=== PATIENT | male | born 1990 | race Caucasian/White ===

== ENCOUNTER → 2016-12-24 | Outpatient (CLI) | payer OTHER | END | disposition home or self-care (01) | LOC: MW.CHRC 09:55 | PROVIDERS: ATTEND Family Medicine | DX: R23.2 Flushing (principal) | CPT/HCPCS: 36415; 84439; 84443; 93005 ==

== ENCOUNTER 2017-05-21 16:12 | Emergency (ER) | payer OTHER ==
[2017-05-21 16:50] VITALS: BP 137/86
--- NOTE | 2017-05-21 17:03 | EDM.PDOC ---
ED HPI GENERAL MEDICAL PROBLEM - General Chief Complaint: Lower Extremity Injury/Pain Stated Complaint: PT HURT LT KNEE Time Seen by Provider: 05/21/17 16:50 Source of Information: Reports: Patient History Limitations: Reports: No Limitations - History of Present Illness INITIAL COMMENTS - FREE TEXT/NARRATIVE: HISTORY AND PHYSICAL: History of present illness: [Patient comes to the emergency room complaining of left knee pain. 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 He landed on his left side with his left knee flexed. Complains of pain over the medial aspect of his left knee. Has been able to bear weight but is limping somewhat. No previous history of trauma or surgeries to his lower extremities. Denies numbness and tingling. He has no other complaints or concerns.] Review of systems: As per history of present illness and below otherwise all systems reviewed and negative. Past medical history: As per history of present illness and as reviewed below otherwise noncontributory. Surgical history: As per history of present illness and as reviewed below otherwise noncontributory. Social history: No reported history of drug or alcohol abuse. Family history: As per history of present illness and as reviewed below otherwise noncontributory. Physical exam: HEENT: Atraumatic, normocephalic. Extremities: Mild swelling is appreciated over the medial aspect of his left knee. And is otherwise atraumatic. No crepitus. No patellar tenderness with palpation. No laxity or joint instability is appreciated. Negative for cords or calf pain. Neurovascular unremarkable. Dorsalis pedis pulses are 2+ and equal bilaterally. Mild limping with ambulation. Neuro: Awake, alert, oriented. Cranial nerves II through XII unremarkable. Cerebellum unremarkable. Motor and sensory unremarkable throughout. Exam nonfocal. Impression: [L knee pain] Plan: [Discussed with patient that he likely experienced a knee strain. Apply ice and a compression brace if he desires, Tylenol and ibuprofen as needed for discomfort. He is offered crutches which he declines today. Referral given to ortho if he desires. He is in agreement with today's plan. All questions are answered and concerns are addressed.] Definitive disposition and diagnosis as appropriate pending reevaluation and review of above. Left Knee Pain Score (Numeric/FACES): 5 - Related Data Allergies Allergy/AdvReac Type Severity Reaction Status Date / Time No Known Allergies Allergy Verified 08/25/15 08:40 Home Meds: Home Meds Fexofenadine [Fely] 1 tab PO DAILY PRN 12/11/15 [History] Fish Oil/[place]-3 Fatty Acids [Fish Oil 1,000 MG] 1 tab PO DAILY 12/11/15 [ History] Multivitamin [Multivitamins] 1 tab PO DAILY 12/11/15 [History] Past Medical History - Past Health History Medical/Surgical History: Denies Medical/Surgical History HEENT History: Reports: None Cardiovascular History: Reports: None Respiratory History: Reports: Other (See Below) Other Respiratory History: possible sleep apnea, has scheduled sleep study in December 19, 2015 Gastrointestinal History: Genitourinary History: Reports: None Musculoskeletal History: Reports: None Neurological History: Reports: None Psychiatric History: Reports: None Endocrine/Metabolic History: Reports: Obesity/BMI 30+ Hematologic History: Reports: None Immunologic History: Reports: None Oncologic (Cancer) History: Reports: None Dermatologic History: Reports: None - Infectious Disease History Infectious Disease History: Reports: None - Past Surgical History Head Surgeries/Procedures: Reports: None Social & Family History - Family History Family Medical History: Noncontributory - Tobacco Use Smoking Status *Q: Never Smoker Second Hand Smoke Exposure: No - Alcohol Use Days Per Week of Alcohol Use: 2 Number of Drinks Per Day: 2 Total Drinks Per Week: 4 - Recreational Drug Use Recreational Drug Use: No Drug Use in Last 12 Months: No Review of Systems - Review of Systems Review Of Systems: ROS reveals no pertinent complaints other than HPI. ED EXAM, GENERAL - Physical Exam Exam: See Below Course - Vital Signs Last Recorded V/S: Last Vital Signs Temp 96.4 F 05/21/17 16:47 Pulse 96 05/21/17 16:47 Resp 18 05/21/17 16:47 BP 137/86 05/21/17 16:47 Pulse Ox 96 05/21/17 16:47 Departure - Departure Time of Disposition: 17:05 Disposition: Home, Self-Care 01 Condition: Good Clinical Impression: Left knee pain - Discharge Information Instructions: Knee Pain Referrals: PCP,None [Primary Care Provider] - Forms: ED Department Discharge Additional Instructions: The following information is given to patients seen in the emergency department who are being discharged to home. This information is to outline your options for follow-up care. We provide all patients seen in our emergency department with a follow-up referral. The need for follow-up, as well as the timing and circumstances, are variable depending upon the specifics of your emergency department visit. If you don't have a primary care physician on staff, we will provide you with a referral. We always advise you to contact your personal physician following an emergency department visit to inform them of the circumstance of the visit and for follow-up with them and/or the need for any referrals to a consulting specialist. The emergency department will also refer you to a specialist when appropriate. This referral assures that you have the opportunity for follow-up care with a specialist. All of these measure are taken in an effort to provide you with optimal care, which includes your follow-up. Under all circumstances we always encourage you to contact your private physician who remains a resource for coordinating your care. When calling for follow-up care, please make the office aware that this follow-up is from your recent emergency room visit. If for any reason you are refused follow-up, please contact the [facility] emergency department at and asked to speak to the emergency department charge nurse. [facility] [address], [address] [place] [address] Follow-up with the orthopedic clinic early next week as desired. Rest, ice, knee brace as needed, anti-inflammatories as discussed. Return to ER as needed as we discussed.
== END 2017-05-21 17:08 | disposition home or self-care (01) ==
LOC: MW.ED 16:12
DX: M25.562 Pain in left knee (principal); E66.9 Obesity, unspecified; Z79.899 Other long term (current) drug therapy
CPT/HCPCS: 99282

== ENCOUNTER 2019-07-17 00:40 | Observation (INO) | payer BC, OTHER ==
[2019-07-17] MEDS ORDERED: Morphine 2 MG/ML Syringe IVPUSH ONE (01:02)
[2019-07-17] MEDS ORDERED: Ondansetron 4 MG/2 ML SDV IVPUSH ONE (01:02)
[2019-07-17] MEDS ORDERED: Sodium Chloride 0.9% 10 ML Syringe FLUSH PRN (01:02)
[2019-07-17] MEDS ORDERED: Sodium Chloride 0.9% 2.5 ML Syringe FLUSH PRN (01:02)
[2019-07-17] MEDS ORDERED: Sodium Chloride 0.9% 1,000 ML IV ONE (01:02)
--- NOTE | 2019-07-17 01:06 | EDM.PDOC ---
ED HPI GENERAL MEDICAL PROBLEM - General Chief Complaint: Abdominal Pain Stated Complaint: STOMACH AND BACK PAIN Time Seen by Provider: 07/17/19 00:53 - History of Present Illness INITIAL COMMENTS - FREE TEXT/NARRATIVE: HISTORY AND PHYSICAL: History of present illness: The patient is a healthy 28 y/o male with no GI or history and no abdominal surgical history which presents with acute onset approximately 2 hours ago of mid abdominal pain in a bandlike area around his umbilicus that is now more diffuse. He said he felt hot but did not have a documented temperature and he had no nausea or vomiting. He had a normal bowel movement earlier which was not black or bloody and no diarrhea. He has no urinary complaints such as burning pain or hematuria and no flank pain. He says that after the abdominal pain became more diffuse he started having some lower back pain more on the right but it is achy in character and is back and more crampy and sharp in the front. He does not feel bloated and he has no history of food intolerance. Patient does admit that he was part of a wedding over the weekend and both on Wednesday night and all day Wednesday he did eat a lot of rich foods and drink alcohol. He says he drinks alcohol socially but not on a regular basis. He has never had issues with alcohol or rich foods. He has no history of trauma no testicular pain or swelling and no discrete flank pain. The patient took aspirin prior to coming here and no other medications. He does not feel bloated. He has not had any upper respiratory symptoms chest pain or shortness of breath Review of systems: As per history of present illness and below otherwise all systems reviewed and negative. Past medical history: As per history of present illness and as reviewed below otherwise noncontributory. Surgical history: As per history of present illness and as reviewed below otherwise noncontributory. Social history: No reported history of drug or alcohol abuse. Family history: As per history of present illness and as reviewed below otherwise noncontributory. Physical exam: General: Well-developed well-nourished mildly overweight man who is nontoxic and vital signs were noted by me. He moves easily in the ED without distress HEENT: Atraumatic, normocephalic, pupils reactive, negative for conjunctival pallor or scleral icterus, mucous membranes tacky, throat clear, neck supple, nontender, trachea midline. Lungs: Clear to auscultation, breath sounds equal bilaterally, chest nontender. Heart: S1S2, regular in rhythm no overt murmurs Abdomen: Soft, nondistended, no sounds are slightly hypoactive and there is no tympany on percussion. There is mild diffuse tenderness in the mid abdomen at the periumbilical area and bilaterally and some moderate right upper quadrant tenderness but overall diffusely tender touch and he says that there is some discomfort of varying degrees. There is no rebound or guarding. Negative for masses or hepatosplenomegaly. Negative for costovertebral tenderness. Pelvis: Stable nontender. Genitourinary: Deferred. Rectal: Deferred. Extremities: Atraumatic, negative for cords or calf pain. Neurovascular unremarkable. Neuro: Awake, alert, oriented. Cranial nerves II through XII unremarkable. Cerebellum unremarkable. Motor and sensory unremarkable throughout. Exam nonfocal. Diagnostics: CBC CMP UA with reflex amylase and lipase lactic acid CT scan of the abdomen and pelvis Therapeutics: IV fluids Zofran and morphine, Dilaudid, nubain hyoscamine The patient did not get any relief with the morphine or the Dilaudid and Nubain didn't "take the edge off" but did not completely resolve the pain. I will discuss the CT scan findings and the clinical statement with Dr. Arevalo our surgeon airline operations agent to see if she wants to proceed with ultrasound 0335: Case was discussed with Dr. Arevalo and she feels that I do need to call and ultrasound emergently this evening and perform this ultrasound to see if there is acute cholecystitis. We have notified the ultrasound tach and I will also discuss this care plan with the patient. 0521: Case was again discussed with Dr. Arevalo who feels that the patient should be admitted to the medicine service for better pain management and bowel rest and surgery can be involved as needed. She has advised me to inform the hospitalist that if he would like formal consultation he can contact surgery later this morning. 0526: Case was discussed with Dr. Westbrook who accepts the patient for observation admission. The testing results were discussed with the patient who also is agreeable to the care plan Impression: Intractable abdominal pain, cholelithiasis and biliary colic Definitive disposition and diagnosis as appropriate pending reevaluation and review of above. Middle Abdomen Pain Score (Numeric/FACES): 9 - Related Data Allergies Allergy/AdvReac Type Severity Reaction Status Date / Time No Known Allergies Allergy Verified 07/17/19 00:48 Home Meds: Home Meds Fexofenadine [Fely] 1 tab PO DAILY PRN 12/11/15 [History] Fish Oil/[place]-3 Fatty Acids [Fish Oil 1,000 MG] 1 tab PO DAILY 12/11/15 [ History] Multivitamin [Multivitamins] 1 tab PO DAILY 12/11/15 [History] Past Medical History - Past Health History Medical/Surgical History: Denies Medical/Surgical History HEENT History: Reports: None Cardiovascular History: Reports: None Respiratory History: Reports: Other (See Below) Other Respiratory History: possible sleep apnea, has scheduled sleep study in December 19, 2015 Gastrointestinal History: Genitourinary History: Reports: None Musculoskeletal History: Reports: None Neurological History: Reports: None Psychiatric History: Reports: None Endocrine/Metabolic History: Reports: Obesity/BMI 30+ Hematologic History: Reports: None Immunologic History: Reports: None Oncologic (Cancer) History: Reports: None Dermatologic History: Reports: None - Infectious Disease History Infectious Disease History: Reports: None - Past Surgical History Head Surgeries/Procedures: Reports: None GI Surgical History: Reports: Hernia Repair/Other Social & Family History - Family History Family Medical History: Noncontributory - Tobacco Use Years of Tobacco use: 4 Packs/Tins Daily: 0.5 - Caffeine Use Caffeine Use: Reports: Coffee, Energy Drinks - Recreational Drug Use Recreational Drug Use: No ED ROS GENERAL - Review of Systems Review Of Systems: ROS reveals no pertinent complaints other than HPI. ED EXAM, GENERAL - Physical Exam Exam: See Below (See dictation) Course - Vital Signs Last Recorded V/S: Last Vital Signs Temp 35.9 C 07/17/19 04:41 Pulse 60 07/17/19 04:41 Resp 20 07/17/19 04:41 BP 166/103 H 07/17/19 04:41 Pulse Ox 98 07/17/19 04:41 - Orders/Labs/Meds Orders: Active Orders 24 hr Category Date Time Status Patient Status [ADT] Stat ADT 07/17/19 05:33 Ordered Sodium Chloride 0.9% [Normal Saline] 1,000 ml Med 07/17/19 03:45 Active IV ASDIRECTED Sodium Chloride 0.9% [Saline Flush] Med 07/17/19 01:02 Active 10 ml FLUSH ASDIRECTED PRN Sodium Chloride 0.9% [Saline Flush] Med 07/17/19 01:02 Active 2.5 ml FLUSH ASDIRECTED PRN Saline Lock Insert [OM.PC] Stat Oth 07/17/19 01:01 Ordered Medication Orders Sodium Chloride (Normal Saline) 1,000 mls @ 150 mls/hr IV ASDIRECTED KASEY Last Admin: 07/17/19 04:00 Dose: 150 mls/hr Sodium Chloride (Saline Flush) 10 ml FLUSH ASDIRECTED PRN PRN Reason: Keep Vein Open Last Admin: 07/17/19 01:32 Dose: 10 ml Sodium Chloride (Saline Flush) 2.5 ml FLUSH ASDIRECTED PRN PRN Reason: Keep Vein Open Last Admin: 07/17/19 01:32 Dose: 2.5 ml Labs: Laboratory Tests 07/17/19 07/17/19 07/17/19 Range/Units 01:17 01:28 01:28 WBC 8.54 (4.0-11.0) K/uL RBC 5.06 (4.50-5.90) M/uL Hgb 15.3 (13.0-17.0) g/dL Hct 43.8 (38.0-50.0) % MCV 86.6 (80.0-98.0) fL MCH 30.2 (27.0-32.0) pg MCHC 34.9 (31.0-37.0) g/dL RDW Std Deviation 38.7 (28.0-62.0) fl RDW Coeff of Alyx 13 (11.0-15.0) % Plt Count 197 (150-400) K/uL MPV 11.50 (7.40-12.00) fL Neut % (Auto) 51.8 (48.0-80.0) % Lymph % (Auto) 35.5 (16.0-40.0) % [place] % (Auto) 9.5 (0.0-15.0) % Eos % (Auto) 3.0 (0.0-7.0) % Baso % (Auto) 0.2 (0.0-1.5) % Neut # (Auto) 4.4 (1.4-5.7) K/uL Lymph # (Auto) 3.0 H (0.6-2.4) K/uL Cedar # (Auto) 0.8 (0.0-0.8) K/uL Eos # (Auto) 0.3 (0.0-0.7) K/uL Baso # (Auto) 0.0 (0.0-0.1) K/uL Lactate (0.20-2.00) mmol/L Sodium 139 (136-148) mmol/L Potassium 4.5 (3.5-5.1) mmol/L Chloride 104 (98-107) mmol/L Carbon Dioxide 22.2 (21.0-32.0) mmol/L BUN 16 (7.0-18.0) mg/dL Creatinine 1.0 (0.8-1.3) mg/dL Est Cr Clr Drug Dosing 130.15 mL/min Estimated GFR (MDRD) > 60.0 ml/min Glucose 112 H (74-106) mg/dL Calcium 9.0 (8.5-10.1) mg/dL Total Bilirubin 0.4 (0.2-1.0) mg/dL AST 62 H (15-37) IU/L ALT 98 H (14-63) IU/L Alkaline Phosphatase 97 (46-116) U/L Total Protein 7.5 (6.4-8.2) g/dL Albumin 3.8 (3.4-5.0) g/dL Globulin 3.7 (2.6-4.0) g/dL Albumin/Globulin Ratio 1.0 (0.9-1.6) Amylase 39 (25-115) U/L Lipase 112 (73-393) U/L Urine Color YELLOW Urine Appearance CLEAR Urine pH 6.0 (5.0-8.0) Ur Specific [place] 1.025 (1.001-1.035) Urine Protein NEGATIVE (NEGATIVE) mg/dL Urine Glucose (UA) NEGATIVE (NEGATIVE) mg/dL Urine Ketones NEGATIVE (NEGATIVE) mg/dL Urine Occult Blood TRACE-INTACT H (NEGATIVE) Urine Nitrite NEGATIVE (NEGATIVE) Urine Bilirubin NEGATIVE (NEGATIVE) Urine Urobilinogen 0.2 (<2.0) EU/dL Ur Leukocyte Esterase NEGATIVE (NEGATIVE) Urine RBC 0-2 (0-2/HPF) Urine WBC 0-1 (0-5/HPF) Ur Epithelial Cells NOT SEEN (NONE-FEW) Urine Bacteria RARE (NEGATIVE) 07/17/19 Range/Units 01:28 WBC (4.0-11.0) K/uL RBC (4.50-5.90) M/uL Hgb (13.0-17.0) g/dL Hct (38.0-50.0) % MCV (80.0-98.0) fL MCH (27.0-32.0) pg MCHC (31.0-37.0) g/dL RDW Std Deviation (28.0-62.0) fl RDW Coeff of Alyx (11.0-15.0) % Plt Count (150-400) K/uL MPV (7.40-12.00) fL Neut % (Auto) (48.0-80.0) % Lymph % (Auto) (16.0-40.0) % Cedar % (Auto) (0.0-15.0) % Eos % (Auto) (0.0-7.0) % Baso % (Auto) (0.0-1.5) % Neut # (Auto) (1.4-5.7) K/uL Lymph # (Auto) (0.6-2.4) K/uL [place] # (Auto) (0.0-0.8) K/uL Eos # (Auto) (0.0-0.7) K/uL Baso # (Auto) (0.0-0.1) K/uL Lactate 1.9 (0.20-2.00) mmol/L Sodium (136-148) mmol/L Potassium (3.5-5.1) mmol/L Chloride (98-107) mmol/L Carbon Dioxide (21.0-32.0) mmol/L BUN (7.0-18.0) mg/dL Creatinine (0.8-1.3) mg/dL Est Cr Clr Drug Dosing mL/min Estimated GFR (MDRD) ml/min Glucose (74-106) mg/dL Calcium (8.5-10.1) mg/dL Total Bilirubin (0.2-1.0) mg/dL AST (15-37) IU/L ALT (14-63) IU/L Alkaline Phosphatase (46-116) U/L Total Protein (6.4-8.2) g/dL Albumin (3.4-5.0) g/dL Globulin (2.6-4.0) g/dL Albumin/Globulin Ratio (0.9-1.6) Amylase (25-115) U/L Lipase (73-393) U/L Urine Color Urine Appearance Urine pH (5.0-8.0) Ur Specific [place] (1.001-1.035) Urine Protein (NEGATIVE) mg/dL Urine Glucose (UA) (NEGATIVE) mg/dL Urine Ketones (NEGATIVE) mg/dL Urine Occult Blood (NEGATIVE) Urine Nitrite (NEGATIVE) Urine Bilirubin (NEGATIVE) Urine Urobilinogen (<2.0) EU/dL Ur Leukocyte Esterase (NEGATIVE) Urine RBC (0-2/HPF) Urine WBC (0-5/HPF) Ur Epithelial Cells (NONE-FEW) Urine Bacteria (NEGATIVE) Meds: Medications Generic Name Dose Route Start Last Admin Trade Name Luis Miguel PRN Reason Stop Dose Admin Sodium Chloride 1,000 mls @ 150 mls/hr 07/17/19 03:45 07/17/19 04:00 Normal Saline IV 150 mls/hr ASDIRECTED KASEY Administration Sodium Chloride 10 ml 07/17/19 01:02 07/17/19 01:32 Saline Flush FLUSH 10 ml ASDIRECTED PRN Administration Keep Vein Open Sodium Chloride 2.5 ml 07/17/19 01:02 07/17/19 01:32 Saline Flush FLUSH 2.5 ml ASDIRECTED PRN Administration Keep Vein Open Discontinued Medications Generic Name Dose Route Start Last Admin Trade Name Luis Miguel PRN Reason Stop Dose Admin Hydromorphone HCl 1 mg 07/17/19 01:51 07/17/19 01:57 Dilaudid IVPUSH 07/17/19 01:52 1 mg ONETIME ONE Administration Hyoscyamine 0.125 mg 07/17/19 05:02 07/17/19 05:08 Hyomax-Sl SL 07/17/19 05:03 0.125 mg ONETIME ONE Administration Sodium Chloride 1,000 mls @ 999 mls/hr 07/17/19 01:02 07/17/19 01:30 Normal Saline IV 07/17/19 02:02 999 mls/hr STAT ONE Administration Iopamidol 100 ml 07/17/19 02:21 07/17/19 02:23 Isovue-370 (76%) IVPUSH 07/17/19 02:22 100 ml ONETIME ONE Administration Morphine Sulfate 4 mg 07/17/19 01:02 07/17/19 01:32 Morphine IVPUSH 07/17/19 01:03 4 mg ONETIME ONE Administration Nalbuphine HCl 10 mg 07/17/19 02:43 07/17/19 03:09 Nubain IVPUSH 07/17/19 02:44 10 mg ONETIME ONE Administration Nalbuphine HCl Confirm 07/17/19 02:51 07/17/19 03:10 Nubain Administered 07/17/19 02:52 Not Given Dose 10 mg .ROUTE .STK-MED ONE Nalbuphine HCl 10 mg 07/17/19 03:08 07/17/19 03:09 Nubain IVPUSH 07/17/19 03:09 Not Given ONETIME ONE Ondansetron HCl 4 mg 07/17/19 01:02 07/17/19 01:30 Zofran IVPUSH 07/17/19 01:03 4 mg ONETIME ONE Administration Departure - Departure Time of Disposition: 05:34 Disposition: Refer to Observation Condition: Good Clinical Impression: Intractable abdominal pain, Biliary colic Cholelithiasis Qualifiers: Cholelithiasis location: gallbladder Cholecystitis presence: without cholecystitis Biliary obstruction: without biliary obstruction Qualified Code(s) : K80.20 - Calculus of gallbladder without cholecystitis without obstruction - Discharge Information Referrals: PCP,None [Primary Care Provider] - Forms: ED Department Discharge - My Orders Last 24 Hours: My Active Orders 07/17/19 01:01 Saline Lock Insert [OM.PC] Stat 07/17/19 01:02 Sodium Chloride 0.9% [Saline Flush] 10 ml FLUSH ASDIRECTED PRN Sodium Chloride 0.9% [Saline Flush] 2.5 ml FLUSH ASDIRECTED PRN 07/17/19 03:45 Sodium Chloride 0.9% [Normal Saline] 1,000 ml IV ASDIRECTED 07/17/19 05:33 Patient Status [ADT] Stat - Assessment/Plan Last 24 Hours: My Active Orders 07/17/19 01:01 Saline Lock Insert [OM.PC] Stat 07/17/19 01:02 Sodium Chloride 0.9% [Saline Flush] 10 ml FLUSH ASDIRECTED PRN Sodium Chloride 0.9% [Saline Flush] 2.5 ml FLUSH ASDIRECTED PRN 07/17/19 03:45 Sodium Chloride 0.9% [Normal Saline] 1,000 ml IV ASDIRECTED 07/17/19 05:33 Patient Status [ADT] Stat
[2019-07-17 01:51] LABS: BLOOD UREA NITROGEN,BUN 16 mg/dL (7.0-18.0); CARBON DIOXIDE,CO2 22.2 mmol/L (21.0-32.0); CHLORIDE,CL 104 mmol/L (98-107); GLUCOSE RANDOM 112 mg/dL (74-106); LIPASE 112 U/L (73-393); POTASSIUM,K 4.5 mmol/L (3.5-5.1); SODIUM,NA 139 mmol/L (136-148)
[2019-07-17] MEDS ORDERED: HYDROmorphone 1 MG/ML Syringe IVPUSH ONE (01:51)
[2019-07-17] MEDS ORDERED: Iopamidol 755 Mg/ML 100 ML Bottle IVPUSH ONE (02:21)
[2019-07-17] MEDS ORDERED: Nalbuphine 20 MG/1 ML Amp IVPUSH ONE ×2 (02:43→03:08)
[2019-07-17] MEDS ORDERED: Nalbuphine 10 MG/1 ML Vial ONE (02:51)
--- NOTE | 2019-07-17 03:09 | CT ---
Indication: Right-sided abdominal pain Technique: Contrast enhanced axial CT imaging through the abdomen and pelvis. 100 mL Isovue 370 contrast agent was administered intravenously. Sagittal and coronal reconstructions are provided. Comparison: None Findings: There is apparent mild periportal edema and pericholecystic fluid, which may be secondary to aggressive hydration. An 11 mm hyperdense stone is demonstrated in the gallbladder neck. There is no significant abnormality of the spleen, pancreas, adrenal glands, and kidneys. There is normal enhancement of the portal venous system. There is normal caliber of the abdominal aorta. The stomach and duodenum are unremarkable. There are no abnormally dilated small bowel loops. The appendix is noninflamed. There is no colonic wall thickening. No inflammatory changes are demonstrated in the mesentery. There is no abdominal lymphadenopathy. The visualized osseous structures are unremarkable. The included lung bases are clear. Impression: Apparent mild periportal edema and pericholecystic fluid, intra commonly seen due to aggressive IV hydration. However, given the presence of cholelithiasis and right-sided abdominal pain, right upper quadrant ultrasound is recommended to exclude acute cholecystitis. Please note that all CT scans at this facility use dose modulation, iterative reconstruction, and/or weight-based dosing when appropriate to reduce radiation dose to as low as reasonably achievable. Dictated by Good Hammond MD @ Jul 17 2019 3:02AM Signed by Dr. Good Hammond @ Jul 17 2019 3:08AM
[2019-07-17] MEDS: Sodium Chloride 0.9% 1,000 ML IV SCH ×3 (04:00→17:07)
[2019-07-17] MEDS ORDERED: Hyoscyamine 0.125 MG Tab.SL SL ONE (05:02)
--- NOTE | 2019-07-17 05:19 | US ---
INDICATION: Right upper quadrant pain TECHNIQUE: Multiple grayscale sonographic images of the right upper quadrant the abdomen. COMPARISON: CT abdomen and pelvis with contrast 07/17/2019 FINDINGS: There is a thin rectangular 1.3 cm mobile shadowing stone within the gallbladder, corresponding to that seen on CT. There is borderline gallbladder wall thickening, which measures 3-4 mm, with trace pericholecystic fluid. A positive sonographic Snyder sign is reported by the flight steward. Findings are concerning for acute cholecystitis. The visualized pancreatic parenchyma is unremarkable. The liver parenchyma demonstrates normal echotexture. There is no intrahepatic biliary dilatation. The common bile duct measures up to 6 mm, the upper limits of normal. The right kidney measures 12.1 cm in length and demonstrates normal echotexture without hydronephrosis. IMPRESSION: Cholelithiasis with borderline gallbladder wall thickening, trace pericholecystic fluid, and positive sonographic Snyder sign. Constellation of findings is compatible with acute cholecystitis in the appropriate clinical setting. Dictated by Good Hammond MD @ Jul 17 2019 5:12AM Signed by Dr. Good Hammond @ Jul 17 2019 5:18AM
[2019-07-17] MEDS ORDERED: Ondansetron 4 MG Tab.DIS PO PRN (08:47)
[2019-07-17] MEDS ORDERED: Morphine 2 MG/ML Syringe IVPUSH PRN (08:47)
[2019-07-17] MEDS ORDERED: Ketorolac 30 MG/ML SDV IVPUSH PRN (08:47)
[2019-07-17] MEDS ORDERED: Ondansetron 4 MG/2 ML SDV IVPUSH PRN (08:47)
[2019-07-17] MEDS ORDERED: Enoxaparin 40 MG/0.4 ML Syringe SUBCUT SCH (09:00)
[2019-07-17] MEDS ORDERED: Pantoprazole 40 MG in Sodium Chloride 0.9% 10 ML IV SCH (10:30)
--- NOTE | 2019-07-17 11:08 | PCM.HP.2 ---
H&P History of Present Illness - General Date of Service: 07/17/19 Admit Problem/Dx: Admission Diagnosis/Problem Admission Diagnosis/Problem Intractable pain - History of Present Illness Initial Comments - Free Text/Narative: 28 y/o male presenting to the ER complaining of severe abdominal pain mostly locate din epigastric region with radiation to back. According to the patient, the pain started in the afternoon and comes and goes. Rated 10/10, lasting for few minutes. No nausea, vomiting. No chest pain, dyspnea. no diarrhea or fevers. Patient states that this weekend he drank alcohol heavily since he went to a wedding on Wednesday. In the ER, RUQ US showed mild pericholecystic fluid and a 1.2 cm gallstone. He was admitted for biliary colic and pain control. Middle Abdomen Pain Score (Numeric/FACES): 4 - Related Data Allergies/Adverse Reactions: Allergies Allergy/AdvReac Type Severity Reaction Status Date / Time No Known Allergies Allergy Verified 07/17/19 06:47 Home Medications: Home Meds Fexofenadine [Fely] 1 tab PO DAILY PRN 12/11/15 [History] Fish Oil/[place]-3 Fatty Acids [Fish Oil 1,000 MG] 1 tab PO DAILY 12/11/15 [ History] Multivitamin [Multivitamins] 1 tab PO DAILY 12/11/15 [History] Past Medical History - Past Health History Medical/Surgical History: Denies Medical/Surgical History HEENT History: Reports: Sinusitis Cardiovascular History: Reports: None Respiratory History: Reports: Other (See Below) Other Respiratory History: possible sleep apnea, has scheduled sleep study in December 19, 2015 Gastrointestinal History: Genitourinary History: Reports: None Musculoskeletal History: Reports: None Neurological History: Reports: None Psychiatric History: Reports: None Endocrine/Metabolic History: Reports: Obesity/BMI 30+ Hematologic History: Reports: None Immunologic History: Reports: None Oncologic (Cancer) History: Reports: None Dermatologic History: Reports: None - Infectious Disease History Infectious Disease History: Reports: None - Past Surgical History Head Surgeries/Procedures: Reports: None GI Surgical History: Reports: Hernia Repair/Other Social & Family History - Family History Family Medical History: Noncontributory - Tobacco Use Smoking Status *Q: Light Tobacco Smoker Years of Tobacco use: 3 Packs/Tins Daily: 0.5 - Caffeine Use Caffeine Use: Reports: Coffee, Soda - Recreational Drug Use Recreational Drug Use: No H&P Review of Systems - Review of Systems: Review Of Systems: ROS reveals no pertinent complaints other than HPI. Exam - Exam Exam: See Below - Vital Signs Vital Signs: Last Vital Signs Temp 35.9 C 07/17/19 04:41 Pulse 60 07/17/19 04:41 Resp 20 07/17/19 04:41 BP 166/103 H 07/17/19 04:41 Pulse Ox 98 07/17/19 04:41 Weight: 116.21 kg - Exam General: Alert, Oriented, Cooperative Lungs: Clear to Auscultation, Normal Respiratory Effort, Wheezing. No: Crackles Cardiovascular: Regular Rate, Regular Rhythm GI/Abdominal Exam: Normal Bowel Sounds, Soft, Non-Tender Extremities: Normal Inspection, No Pedal Edema Skin: Warm, Dry - Patient Data Lab Results Last 24 hrs: Laboratory Results - last 24 hr 07/17/19 07/17/19 07/17/19 Range/Units 01:17 01:28 01:28 WBC 8.54 (4.0-11.0) K/uL RBC 5.06 (4.50-5.90) M/uL Hgb 15.3 (13.0-17.0) g/dL Hct 43.8 (38.0-50.0) % MCV 86.6 (80.0-98.0) fL MCH 30.2 (27.0-32.0) pg MCHC 34.9 (31.0-37.0) g/dL RDW Std Deviation 38.7 (28.0-62.0) fl RDW Coeff of Alyx 13 (11.0-15.0) % Plt Count 197 (150-400) K/uL MPV 11.50 (7.40-12.00) fL Neut % (Auto) 51.8 (48.0-80.0) % Lymph % (Auto) 35.5 (16.0-40.0) % Warrick % (Auto) 9.5 (0.0-15.0) % Eos % (Auto) 3.0 (0.0-7.0) % Baso % (Auto) 0.2 (0.0-1.5) % Neut # (Auto) 4.4 (1.4-5.7) K/uL Lymph # (Auto) 3.0 H (0.6-2.4) K/uL Warrick # (Auto) 0.8 (0.0-0.8) K/uL Eos # (Auto) 0.3 (0.0-0.7) K/uL Baso # (Auto) 0.0 (0.0-0.1) K/uL Lactate (0.20-2.00) mmol/L Sodium 139 (136-148) mmol/L Potassium 4.5 (3.5-5.1) mmol/L Chloride 104 (98-107) mmol/L Carbon Dioxide 22.2 (21.0-32.0) mmol/L BUN 16 (7.0-18.0) mg/dL Creatinine 1.0 (0.8-1.3) mg/dL Est Cr Clr Drug Dosing 130.15 mL/min Estimated GFR (MDRD) > 60.0 ml/min Glucose 112 H (74-106) mg/dL Calcium 9.0 (8.5-10.1) mg/dL Total Bilirubin 0.4 (0.2-1.0) mg/dL AST 62 H (15-37) IU/L ALT 98 H (14-63) IU/L Alkaline Phosphatase 97 (46-116) U/L Total Protein 7.5 (6.4-8.2) g/dL Albumin 3.8 (3.4-5.0) g/dL Globulin 3.7 (2.6-4.0) g/dL Albumin/Globulin Ratio 1.0 (0.9-1.6) Amylase 39 (25-115) U/L Lipase 112 (73-393) U/L Urine Color YELLOW Urine Appearance CLEAR Urine pH 6.0 (5.0-8.0) Ur Specific Perry 1.025 (1.001-1.035) Urine Protein NEGATIVE (NEGATIVE) mg/dL Urine Glucose (UA) NEGATIVE (NEGATIVE) mg/dL Urine Ketones NEGATIVE (NEGATIVE) mg/dL Urine Occult Blood TRACE-INTACT H (NEGATIVE) Urine Nitrite NEGATIVE (NEGATIVE) Urine Bilirubin NEGATIVE (NEGATIVE) Urine Urobilinogen 0.2 (<2.0) EU/dL Ur Leukocyte Esterase NEGATIVE (NEGATIVE) Urine RBC 0-2 (0-2/HPF) Urine WBC 0-1 (0-5/HPF) Ur Epithelial Cells NOT SEEN (NONE-FEW) Urine Bacteria RARE (NEGATIVE) 07/17/19 Range/Units 01:28 WBC (4.0-11.0) K/uL RBC (4.50-5.90) M/uL Hgb (13.0-17.0) g/dL Hct (38.0-50.0) % MCV (80.0-98.0) fL MCH (27.0-32.0) pg MCHC (31.0-37.0) g/dL RDW Std Deviation (28.0-62.0) fl RDW Coeff of Alyx (11.0-15.0) % Plt Count (150-400) K/uL MPV (7.40-12.00) fL Neut % (Auto) (48.0-80.0) % Lymph % (Auto) (16.0-40.0) % Warrick % (Auto) (0.0-15.0) % Eos % (Auto) (0.0-7.0) % Baso % (Auto) (0.0-1.5) % Neut # (Auto) (1.4-5.7) K/uL Lymph # (Auto) (0.6-2.4) K/uL Warrick # (Auto) (0.0-0.8) K/uL Eos # (Auto) (0.0-0.7) K/uL Baso # (Auto) (0.0-0.1) K/uL Lactate 1.9 (0.20-2.00) mmol/L Sodium (136-148) mmol/L Potassium (3.5-5.1) mmol/L Chloride (98-107) mmol/L Carbon Dioxide (21.0-32.0) mmol/L BUN (7.0-18.0) mg/dL Creatinine (0.8-1.3) mg/dL Est Cr Clr Drug Dosing mL/min Estimated GFR (MDRD) ml/min Glucose (74-106) mg/dL Calcium (8.5-10.1) mg/dL Total Bilirubin (0.2-1.0) mg/dL AST (15-37) IU/L ALT (14-63) IU/L Alkaline Phosphatase (46-116) U/L Total Protein (6.4-8.2) g/dL Albumin (3.4-5.0) g/dL Globulin (2.6-4.0) g/dL Albumin/Globulin Ratio (0.9-1.6) Amylase (25-115) U/L Lipase (73-393) U/L Urine Color Urine Appearance Urine pH (5.0-8.0) Ur Specific Perry (1.001-1.035) Urine Protein (NEGATIVE) mg/dL Urine Glucose (UA) (NEGATIVE) mg/dL Urine Ketones (NEGATIVE) mg/dL Urine Occult Blood (NEGATIVE) Urine Nitrite (NEGATIVE) Urine Bilirubin (NEGATIVE) Urine Urobilinogen (<2.0) EU/dL Ur Leukocyte Esterase (NEGATIVE) Urine RBC (0-2/HPF) Urine WBC (0-5/HPF) Ur Epithelial Cells (NONE-FEW) Urine Bacteria (NEGATIVE) Result Diagrams: 07/17/19 01:28 07/17/19 01:28 Problem List Initiated/Reviewed/Updated: Yes Orders Last 24hrs: Active Orders 24 hr Category Date Time Status Patient Status [ADT] Stat ADT 07/17/19 05:33 Active Blood Glucose Check, Bedside [RC] QIDACANDBED Care 07/17/19 08:47 Active Intake and Output [RC] QSHIFT Care 07/17/19 08:48 Active Notify Provider Consults [RC] ASDIRECTED Care 07/17/19 08:53 Active Oxygen Therapy [RC] PRN Care 07/17/19 08:47 Active Up ad Tiffanie [RC] ASDIRECTED Care 07/17/19 08:47 Active VTE/DVT Education [RC] PER UNIT ROUTINE Care 07/17/19 08:47 Active Vital Signs [RC] Q4H Care 07/17/19 08:47 Active Consult to Physician [CONS] Routine Cons 07/17/19 08:53 Active Nothing per Oral Now Diet [DIET] Diet 07/17/19 Lunch Active Enoxaparin [Lovenox] Med 07/17/19 09:00 Active 40 mg SUBCUT Q24H Morphine Med 07/17/19 08:47 Active 2 mg IVPUSH Q2H PRN Ondansetron [Zofran ODT] Med 07/17/19 08:47 Active 4 mg PO Q4H PRN Ondansetron [Zofran] Med 07/17/19 08:47 Active 4 mg IVPUSH Q4H PRN Pantoprazole [ProTONIX IV] 40 mg Med 07/17/19 10:30 Active Sodium Chloride 0.9% [Normal Saline] 10 ml IV Q12H Sodium Chloride 0.9% [Normal Saline] 1,000 ml Med 07/17/19 03:45 Active IV ASDIRECTED Sodium Chloride 0.9% [Saline Flush] Med 07/17/19 01:02 Active 10 ml FLUSH ASDIRECTED PRN Sodium Chloride 0.9% [Saline Flush] Med 07/17/19 01:02 Active 2.5 ml FLUSH ASDIRECTED PRN Saline Lock Insert [OM.PC] Stat Oth 07/17/19 01:01 Ordered Resuscitation Status Routine Resus Stat 07/17/19 08:47 Ordered Medication Orders Enoxaparin Sodium (Lovenox) 40 mg SUBCUT Q24H [facility] Last Admin: 07/17/19 10:07 Dose: 40 mg Sodium Chloride (Normal Saline) 1,000 mls @ 150 mls/hr IV ASDIRECTED [facility] Last Admin: 07/17/19 10:10 Dose: 150 mls/hr Infusion: 07/17/19 10:10 Dose: 150 mls/hr Admin: 07/17/19 04:00 Dose: 150 mls/hr Pantoprazole Sodium 40 mg/ (Sodium Chloride) 10 mls @ 300 mls/hr IV Q12H [facility] Last Admin: 07/17/19 11:06 Dose: 300 mls/hr Morphine Sulfate (Morphine) 2 mg IVPUSH Q2H PRN PRN Reason: Pain (severe 7-10) Stop: 07/18/19 08:48 Ondansetron HCl (Zofran) 4 mg IVPUSH Q4H PRN PRN Reason: Nausea Ondansetron HCl (Zofran Odt) 4 mg PO Q4H PRN PRN Reason: nausea, able to take PO Sodium Chloride (Saline Flush) 10 ml FLUSH ASDIRECTED PRN PRN Reason: Keep Vein Open Last Admin: 07/17/19 01:32 Dose: 10 ml Sodium Chloride (Saline Flush) 2.5 ml FLUSH ASDIRECTED PRN PRN Reason: Keep Vein Open Last Admin: 07/17/19 01:32 Dose: 2.5 ml Assessment/Plan Comment:: A: 1. Biliary colic with intractable pain 2. Gastritis P: 1. Will make NPO and consult with general surgery for further recommendations. Continue with maintenance fluids. Patient remains afebrile, no white count. Pain is more under control now. Dispo: 1-2 days
[2019-07-17 17:37] VITALS: BP 139/80; PULSE 62
--- NOTE | 2019-07-17 17:55 | PCM.CONS ---
<Jm Quigley - Last Filed: 07/17/19 18:16> H&P History of Present Illness - General Date of Service: 07/17/19 Admit Problem/Dx: Admission Diagnosis/Problem Admission Diagnosis/Problem Intractable pain Source of Information: Patient History Limitations: Reports: No Limitations - History of Present Illness Initial Comments - Free Text/Narative: Patient is a 28 yr old male that presented to the ED this am with right upper quadrant pain. He states that the pain started last night around 2200. He ate supper at 2100, which was a sandwich with avocado. He stated that the pain came on all of a sudden. He states that the pain radiated to his back. He describes it as a severe but dull pain that was constant. He denies nausea, vomiting, diarrhea, fever, and chills. His pain has improved at this time. Symptom Onset Date: 07/16/19 Duration of Symptoms: Reports: Constant, Getting Worse Location: Reports: Abdomen Quality: Reports: Dull Severity: Moderate Improves with: Reports: Medication Associated Symptoms: Reports: No Other Symptoms Middle Abdomen Pain Score (Numeric/FACES): 4 - Related Data Allergies/Adverse Reactions: Allergies Allergy/AdvReac Type Severity Reaction Status Date / Time No Known Allergies Allergy Verified 07/17/19 06:47 Home Medications: Home Meds Fexofenadine [Fely] 1 tab PO DAILY PRN 12/11/15 [History] Fish Oil/[place]-3 Fatty Acids [Fish Oil 1,000 MG] 1 tab PO DAILY 12/11/15 [ History] Multivitamin [Multivitamins] 1 tab PO DAILY 12/11/15 [History] Omeprazole 20 mg PO ACBREAKFAST 30 Days #30 cap.sr 07/17/19 [Rx] Past Medical History - Past Health History Medical/Surgical History: Denies Medical/Surgical History HEENT History: Reports: Sinusitis Cardiovascular History: Reports: None Respiratory History: Reports: Other (See Below) Other Respiratory History: possible sleep apnea, has scheduled sleep study in December 19, 2015 Gastrointestinal History: Genitourinary History: Reports: None Musculoskeletal History: Reports: None Neurological History: Reports: None Psychiatric History: Reports: None Endocrine/Metabolic History: Reports: Obesity/BMI 30+ Hematologic History: Reports: None Immunologic History: Reports: None Oncologic (Cancer) History: Reports: None Dermatologic History: Reports: None - Infectious Disease History Infectious Disease History: Reports: None - Past Surgical History Head Surgeries/Procedures: Reports: None GI Surgical History: Reports: Hernia Repair/Other Social & Family History - Family History Family Medical History: Noncontributory - Tobacco Use Smoking Status *Q: Light Tobacco Smoker Years of Tobacco use: 3 Packs/Tins Daily: 0.5 - Caffeine Use Caffeine Use: Reports: Coffee, Soda - Alcohol Use Alcohol Use History: Yes Alcohol Use Frequency: Socially - Recreational Drug Use Recreational Drug Use: No H&P Review of Systems - Review of Systems: Review Of Systems: See Below General: Reports: No Symptoms. Denies: Fever, Chills HEENT: Reports: Rhinitis, Sore Throat Pulmonary: Denies: Shortness of Breath, Wheezing, Cough Cardiovascular: Denies: Chest Pain, Claudication Gastrointestinal: Reports: Abdominal Pain. Denies: Constipation, Diarrhea, Nausea, Vomiting Genitourinary: Reports: No Symptoms Musculoskeletal: Reports: No Symptoms Skin: Denies: Jaundice Exam - Exam Exam: See Below - Vital Signs Vital Signs: Last Vital Signs Temp 97.6 F 07/17/19 16:00 Pulse 62 07/17/19 16:00 Resp 18 07/17/19 16:00 BP 139/80 07/17/19 16:00 Pulse Ox 96 07/17/19 16:00 Weight: 256 lb 3.2 oz - Exam General: Alert, Oriented, Cooperative HEENT: EOMI, Hearing Intact Lungs: Clear to Auscultation, Normal Respiratory Effort Cardiovascular: Regular Rate, Regular Rhythm GI/Abdominal Exam: Normal Bowel Sounds, Soft, No Distention, Tender (mild tenderness to deep palpation in the right upper quadrant) Extremities: No Pedal Edema Skin: Warm, Dry, Intact - Patient Data Lab Results Last 24 hrs: Laboratory Results - last 24 hr 07/17/19 07/17/19 07/17/19 Range/Units 01:17 01:28 01:28 WBC 8.54 (4.0-11.0) K/uL RBC 5.06 (4.50-5.90) M/uL Hgb 15.3 (13.0-17.0) g/dL Hct 43.8 (38.0-50.0) % MCV 86.6 (80.0-98.0) fL MCH 30.2 (27.0-32.0) pg MCHC 34.9 (31.0-37.0) g/dL RDW Std Deviation 38.7 (28.0-62.0) fl RDW Coeff of Alyx 13 (11.0-15.0) % Plt Count 197 (150-400) K/uL MPV 11.50 (7.40-12.00) fL Neut % (Auto) 51.8 (48.0-80.0) % Lymph % (Auto) 35.5 (16.0-40.0) % Todd % (Auto) 9.5 (0.0-15.0) % Eos % (Auto) 3.0 (0.0-7.0) % Baso % (Auto) 0.2 (0.0-1.5) % Neut # (Auto) 4.4 (1.4-5.7) K/uL Lymph # (Auto) 3.0 H (0.6-2.4) K/uL Todd # (Auto) 0.8 (0.0-0.8) K/uL Eos # (Auto) 0.3 (0.0-0.7) K/uL Baso # (Auto) 0.0 (0.0-0.1) K/uL Lactate (0.20-2.00) mmol/L Sodium 139 (136-148) mmol/L Potassium 4.5 (3.5-5.1) mmol/L Chloride 104 (98-107) mmol/L Carbon Dioxide 22.2 (21.0-32.0) mmol/L BUN 16 (7.0-18.0) mg/dL Creatinine 1.0 (0.8-1.3) mg/dL Est Cr Clr Drug Dosing 130.15 mL/min Estimated GFR (MDRD) > 60.0 ml/min Glucose 112 H (74-106) mg/dL POC Glucose (60-110) mg/dL Calcium 9.0 (8.5-10.1) mg/dL Total Bilirubin 0.4 (0.2-1.0) mg/dL AST 62 H (15-37) IU/L ALT 98 H (14-63) IU/L Alkaline Phosphatase 97 (46-116) U/L Total Protein 7.5 (6.4-8.2) g/dL Albumin 3.8 (3.4-5.0) g/dL Globulin 3.7 (2.6-4.0) g/dL Albumin/Globulin Ratio 1.0 (0.9-1.6) Amylase 39 (25-115) U/L Lipase 112 (73-393) U/L Urine Color YELLOW Urine Appearance CLEAR Urine pH 6.0 (5.0-8.0) Ur Specific [place] 1.025 (1.001-1.035) Urine Protein NEGATIVE (NEGATIVE) mg/dL Urine Glucose (UA) NEGATIVE (NEGATIVE) mg/dL Urine Ketones NEGATIVE (NEGATIVE) mg/dL Urine Occult Blood TRACE-INTACT H (NEGATIVE) Urine Nitrite NEGATIVE (NEGATIVE) Urine Bilirubin NEGATIVE (NEGATIVE) Urine Urobilinogen 0.2 (<2.0) EU/dL Ur Leukocyte Esterase NEGATIVE (NEGATIVE) Urine RBC 0-2 (0-2/HPF) Urine WBC 0-1 (0-5/HPF) Ur Epithelial Cells NOT SEEN (NONE-FEW) Urine Bacteria RARE (NEGATIVE) 07/17/19 07/17/19 07/17/19 Range/Units 01:28 12:04 16:36 WBC (4.0-11.0) K/uL RBC (4.50-5.90) M/uL Hgb (13.0-17.0) g/dL Hct (38.0-50.0) % MCV (80.0-98.0) fL MCH (27.0-32.0) pg MCHC (31.0-37.0) g/dL RDW Std Deviation (28.0-62.0) fl RDW Coeff of Alyx (11.0-15.0) % Plt Count (150-400) K/uL MPV (7.40-12.00) fL Neut % (Auto) (48.0-80.0) % Lymph % (Auto) (16.0-40.0) % Todd % (Auto) (0.0-15.0) % Eos % (Auto) (0.0-7.0) % Baso % (Auto) (0.0-1.5) % Neut # (Auto) (1.4-5.7) K/uL Lymph # (Auto) (0.6-2.4) K/uL Todd # (Auto) (0.0-0.8) K/uL Eos # (Auto) (0.0-0.7) K/uL Baso # (Auto) (0.0-0.1) K/uL Lactate 1.9 (0.20-2.00) mmol/L Sodium (136-148) mmol/L Potassium (3.5-5.1) mmol/L Chloride (98-107) mmol/L Carbon Dioxide (21.0-32.0) mmol/L BUN (7.0-18.0) mg/dL Creatinine (0.8-1.3) mg/dL Est Cr Clr Drug Dosing mL/min Estimated GFR (MDRD) ml/min Glucose (74-106) mg/dL POC Glucose 83 79 (60-110) mg/dL Calcium (8.5-10.1) mg/dL Total Bilirubin (0.2-1.0) mg/dL AST (15-37) IU/L ALT (14-63) IU/L Alkaline Phosphatase (46-116) U/L Total Protein (6.4-8.2) g/dL Albumin (3.4-5.0) g/dL Globulin (2.6-4.0) g/dL Albumin/Globulin Ratio (0.9-1.6) Amylase (25-115) U/L Lipase (73-393) U/L Urine Color Urine Appearance Urine pH (5.0-8.0) Ur Specific [place] (1.001-1.035) Urine Protein (NEGATIVE) mg/dL Urine Glucose (UA) (NEGATIVE) mg/dL Urine Ketones (NEGATIVE) mg/dL Urine Occult Blood (NEGATIVE) Urine Nitrite (NEGATIVE) Urine Bilirubin (NEGATIVE) Urine Urobilinogen (<2.0) EU/dL Ur Leukocyte Esterase (NEGATIVE) Urine RBC (0-2/HPF) Urine WBC (0-5/HPF) Ur Epithelial Cells (NONE-FEW) Urine Bacteria (NEGATIVE) Result Diagrams: 07/17/19 01:28 07/17/19 01:28 Imaging Impressions Last 24 hrs: Right upper quadrant ultrasound: Gallbladder wall thickness of 3-4 mm, mild pericholecystic fluid, no dilated CBD CT abdomen and pelvis gallbladder with 11 mm stone at neck, mild pericholecystic fluid Consult PN Assessment/Plan Procedures: Procedures ASSAY OF AMYLASE (11/06/15) ASSAY OF FREE THYROXINE (12/24/16) ASSAY OF LIPASE (11/06/15) ASSAY THYROID STIM HORMONE (12/24/16) COMPLETE CBC W/AUTO DIFF WBC (08/26/16) COMPREHEN METABOLIC PANEL (08/26/16) CT PELVIS W/O DYE (01/01/15) CULTURE SCREEN ONLY (10/26/17) EMERGENCY DEPT VISIT (05/21/17) EMERGENCY DEPT VISIT (11/06/15) EMERGENCY DEPT VISIT (08/25/15) EXTREMITY STUDY (04/08/17) HEP B SURFACE ANTIBODY (08/25/15) HEPATITIS BE ANTIBODY (08/26/16) HEPATITIS C AB TEST (08/26/16) HERPES SIMPLEX TYPE 1 TEST (05/08/15) HIV-1 AG W/HIV-1 & HIV-2 AB (08/26/16) HIV-1/HIV-2 1 RESULT ANTBDY (05/08/15) MRI JNT OF LWR EXTRE W/O DYE (06/10/17) POLYSOM 6/> YRS 4/> ANURADHA (12/24/15) POLYSOM 6/>YRS CPAP 4/> PARM (02/20/16) PRP I/BERENICE INIT REDUC >5 YR (12/13/15) PT EVAL LOW COMPLEX 20 MIN (07/02/17) ROUTINE VENIPUNCTURE (12/24/16) STREP A ASSAY W/OPTIC (10/26/17) THERAPEUTIC EXERCISES (07/16/17) URINALYSIS AUTO W/SCOPE (04/20/16) X-RAY EXAM OF ABDOMEN (11/06/15) X-RAY EXAM OF KNEE 3 (06/03/17) X-RAY EXAM OF LOWER LEG (04/08/17) (1) Biliary colic SNOMED Code(s): 00354133 Code(s): K80.50 - CALCULUS OF BILE DUCT W/O CHOLANGITIS OR CHOLECYST W/O OBST Current Visit: Yes Problem List Initiated/Reviewed/Updated: Yes Plan: With the constellation of symptoms, laboratory, and imaging finding, this appears to be consistent with biliary colic. Discussed with patient that this could be taken care of as an outpatient, no indication for immediate or emergent surgery at this time. Recommend following a low fat diet to avoid the pain Return to the ED if having light colored stools and becoming jaundice Plan for follow up in clinic to schedule outpatient surgery. <Clarke Copeland - Last Filed: 07/17/19 18:49> H&P History of Present Illness - General Admit Problem/Dx: Admission Diagnosis/Problem Admission Diagnosis/Problem Intractable pain Exam - Vital Signs Vital Signs: Last Vital Signs Temp 97.6 F 07/17/19 16:00 Pulse 62 07/17/19 16:00 Resp 18 07/17/19 16:00 BP 139/80 07/17/19 16:00 Pulse Ox 96 07/17/19 16:00 - Patient Data Lab Results Last 24 hrs: Laboratory Results - last 24 hr 07/17/19 07/17/19 07/17/19 Range/Units 01:17 01:28 01:28 WBC 8.54 (4.0-11.0) K/uL RBC 5.06 (4.50-5.90) M/uL Hgb 15.3 (13.0-17.0) g/dL Hct 43.8 (38.0-50.0) % MCV 86.6 (80.0-98.0) fL MCH 30.2 (27.0-32.0) pg MCHC 34.9 (31.0-37.0) g/dL RDW Std Deviation 38.7 (28.0-62.0) fl RDW Coeff of Alyx 13 (11.0-15.0) % Plt Count 197 (150-400) K/uL MPV 11.50 (7.40-12.00) fL Neut % (Auto) 51.8 (48.0-80.0) % Lymph % (Auto) 35.5 (16.0-40.0) % Todd % (Auto) 9.5 (0.0-15.0) % Eos % (Auto) 3.0 (0.0-7.0) % Baso % (Auto) 0.2 (0.0-1.5) % Neut # (Auto) 4.4 (1.4-5.7) K/uL Lymph # (Auto) 3.0 H (0.6-2.4) K/uL Todd # (Auto) 0.8 (0.0-0.8) K/uL Eos # (Auto) 0.3 (0.0-0.7) K/uL Baso # (Auto) 0.0 (0.0-0.1) K/uL Lactate (0.20-2.00) mmol/L Sodium 139 (136-148) mmol/L Potassium 4.5 (3.5-5.1) mmol/L Chloride 104 (98-107) mmol/L Carbon Dioxide 22.2 (21.0-32.0) mmol/L BUN 16 (7.0-18.0) mg/dL Creatinine 1.0 (0.8-1.3) mg/dL Est Cr Clr Drug Dosing 130.15 mL/min Estimated GFR (MDRD) > 60.0 ml/min Glucose 112 H (74-106) mg/dL POC Glucose (60-110) mg/dL Calcium 9.0 (8.5-10.1) mg/dL Total Bilirubin 0.4 (0.2-1.0) mg/dL AST 62 H (15-37) IU/L ALT 98 H (14-63) IU/L Alkaline Phosphatase 97 (46-116) U/L Total Protein 7.5 (6.4-8.2) g/dL Albumin 3.8 (3.4-5.0) g/dL Globulin 3.7 (2.6-4.0) g/dL Albumin/Globulin Ratio 1.0 (0.9-1.6) Amylase 39 (25-115) U/L Lipase 112 (73-393) U/L Urine Color YELLOW Urine Appearance CLEAR Urine pH 6.0 (5.0-8.0) Ur Specific [place] 1.025 (1.001-1.035) Urine Protein NEGATIVE (NEGATIVE) mg/dL Urine Glucose (UA) NEGATIVE (NEGATIVE) mg/dL Urine Ketones NEGATIVE (NEGATIVE) mg/dL Urine Occult Blood TRACE-INTACT H (NEGATIVE) Urine Nitrite NEGATIVE (NEGATIVE) Urine Bilirubin NEGATIVE (NEGATIVE) Urine Urobilinogen 0.2 (<2.0) EU/dL Ur Leukocyte Esterase NEGATIVE (NEGATIVE) Urine RBC 0-2 (0-2/HPF) Urine WBC 0-1 (0-5/HPF) Ur Epithelial Cells NOT SEEN (NONE-FEW) Urine Bacteria RARE (NEGATIVE) 07/17/19 07/17/19 07/17/19 Range/Units 01:28 12:04 16:36 WBC (4.0-11.0) K/uL RBC (4.50-5.90) M/uL Hgb (13.0-17.0) g/dL Hct (38.0-50.0) % MCV (80.0-98.0) fL MCH (27.0-32.0) pg MCHC (31.0-37.0) g/dL RDW Std Deviation (28.0-62.0) fl RDW Coeff of Aylx (11.0-15.0) % Plt Count (150-400) K/uL MPV (7.40-12.00) fL Neut % (Auto) (48.0-80.0) % Lymph % (Auto) (16.0-40.0) % Todd % (Auto) (0.0-15.0) % Eos % (Auto) (0.0-7.0) % Baso % (Auto) (0.0-1.5) % Neut # (Auto) (1.4-5.7) K/uL Lymph # (Auto) (0.6-2.4) K/uL Todd # (Auto) (0.0-0.8) K/uL Eos # (Auto) (0.0-0.7) K/uL Baso # (Auto) (0.0-0.1) K/uL Lactate 1.9 (0.20-2.00) mmol/L Sodium (136-148) mmol/L Potassium (3.5-5.1) mmol/L Chloride (98-107) mmol/L Carbon Dioxide (21.0-32.0) mmol/L BUN (7.0-18.0) mg/dL Creatinine (0.8-1.3) mg/dL Est Cr Clr Drug Dosing mL/min Estimated GFR (MDRD) ml/min Glucose (74-106) mg/dL POC Glucose 83 79 (60-110) mg/dL Calcium (8.5-10.1) mg/dL Total Bilirubin (0.2-1.0) mg/dL AST (15-37) IU/L ALT (14-63) IU/L Alkaline Phosphatase (46-116) U/L Total Protein (6.4-8.2) g/dL Albumin (3.4-5.0) g/dL Globulin (2.6-4.0) g/dL Albumin/Globulin Ratio (0.9-1.6) Amylase (25-115) U/L Lipase (73-393) U/L Urine Color Urine Appearance Urine pH (5.0-8.0) Ur Specific [place] (1.001-1.035) Urine Protein (NEGATIVE) mg/dL Urine Glucose (UA) (NEGATIVE) mg/dL Urine Ketones (NEGATIVE) mg/dL Urine Occult Blood (NEGATIVE) Urine Nitrite (NEGATIVE) Urine Bilirubin (NEGATIVE) Urine Urobilinogen (<2.0) EU/dL Ur Leukocyte Esterase (NEGATIVE) Urine RBC (0-2/HPF) Urine WBC (0-5/HPF) Ur Epithelial Cells (NONE-FEW) Urine Bacteria (NEGATIVE) Result Diagrams: 07/17/19 01:28 07/17/19 01:28 Consult PN Assessment/Plan Procedures: Procedures ASSAY OF AMYLASE (11/06/15) ASSAY OF FREE THYROXINE (12/24/16) ASSAY OF LIPASE (11/06/15) ASSAY THYROID STIM HORMONE (12/24/16) COMPLETE CBC W/AUTO DIFF WBC (08/26/16) COMPREHEN METABOLIC PANEL (08/26/16) CT PELVIS W/O DYE (01/01/15) CULTURE SCREEN ONLY (10/26/17) EMERGENCY DEPT VISIT (05/21/17) EMERGENCY DEPT VISIT (11/06/15) EMERGENCY DEPT VISIT (08/25/15) EXTREMITY STUDY (04/08/17) HEP B SURFACE ANTIBODY (08/25/15) HEPATITIS BE ANTIBODY (08/26/16) HEPATITIS C AB TEST (08/26/16) HERPES SIMPLEX TYPE 1 TEST (05/08/15) HIV-1 AG W/HIV-1 & HIV-2 AB (08/26/16) HIV-1/HIV-2 1 RESULT ANTBDY (05/08/15) MRI JNT OF LWR EXTRE W/O DYE (06/10/17) POLYSOM 6/> YRS 4/> ANURADHA (12/24/15) POLYSOM 6/>YRS CPAP 4/> PARM (02/20/16) PRP I/BERENICE INIT REDUC >5 YR (12/13/15) PT EVAL LOW COMPLEX 20 MIN (07/02/17) ROUTINE VENIPUNCTURE (12/24/16) STREP A ASSAY W/OPTIC (10/26/17) THERAPEUTIC EXERCISES (07/16/17) URINALYSIS AUTO W/SCOPE (04/20/16) X-RAY EXAM OF ABDOMEN (11/06/15) X-RAY EXAM OF KNEE 3 (06/03/17) X-RAY EXAM OF LOWER LEG (04/08/17) (1) Biliary colic SNOMED Code(s): 51183891 Code(s): K80.50 - CALCULUS OF BILE DUCT W/O CHOLANGITIS OR CHOLECYST W/O OBST Priority: High Current Visit: Yes (2) Cholelithiasis SNOMED Code(s): 656788950 Code(s): K80.20 - CALCULUS OF GALLBLADDER W/O CHOLECYSTITIS W/O OBSTRUCTION Priority: High Current Visit: Yes Qualifiers: Cholelithiasis location: gallbladder Cholecystitis presence: without cholecystitis Biliary obstruction: without biliary obstruction Qualified Code(s): K80.20 - Calculus of gallbladder without cholecystitis without obstruction Problem List Initiated/Reviewed/Updated: Yes Plan: Patient seen and independently examined. Patient is doing well tonight and asymptomatic. Recommend low fat diet. Elective outpatient laparoscopic cholecystectomy.
== END 2019-07-17 18:40 | disposition home or self-care (01) ==
LOC: MW.ED 00:40 → MW.MS 05:33
PROVIDERS: ADMIT Internal Medicine; ATTEND Internal Medicine
DX: K80.50 Calculus of bile duct without cholangitis or cholecystitis without obstruction (principal); K80.20 Calculus of gallbladder without cholecystitis without obstruction; K29.70 Gastritis, unspecified, without bleeding; F17.290 Nicotine dependence, other tobacco product, uncomplicated; E66.9 Obesity, unspecified; Z68.32 Body mass index [BMI] 32.0-32.9, adult
CPT/HCPCS: 36415; 74177; 76705; 80053; 81001; 82150; 82962; 83605; 83690; 85025; A9270; C9113; J1170; J1650; J2270; J2300; J2405; J7040; J7050; Q9967; 96361; 96374; 96375; 99285; 99285-25

== ENCOUNTER 2019-08-25 06:41 | Day surgery (SDC) | payer BC ==
[~2019-08-25 06:41] MED LIST: Lactated Ringers 1,000 ML IV SCH; cefOXitin 2 GM in Premix Bag 1 BAG IV ONE
[2019-08-25] MEDS ORDERED: Scopolamine 1.5 MG Transdermal Patch TRDERM PRN (07:21)
--- NOTE | 2019-08-25 07:25 | PCM.PREANE ---
Preanesthetic Assessment - Anesthesia/Transfusion/Family Hx Anesthesia History: Prior Anesthesia Without Reaction Family History of Anesthesia Reaction: No Transfusion History: No Prior Transfusion(s) Intubation History: Unknown - Review of Systems General: No Symptoms Pulmonary: No Symptoms Cardiovascular: No Symptoms Gastrointestinal: No Symptoms Neurological: No Symptoms Other: Reports: None - Physical Assessment Vital Signs: Last Vital Signs Temp 36.4 C 08/25/19 06:55 Pulse 70 08/25/19 06:55 Resp 18 08/25/19 06:55 BP 132/77 08/25/19 06:55 Pulse Ox 96 08/25/19 06:55 Height: 6 ft 2 in Weight: 112.491 kg ASA Class: 2 Mental Status: Alert & Oriented x3 Airway Class: Mallampati = 2 Dentition: Reports: Normal Dentition Thyro-Mental Finger Breadths: 3 Mouth Opening Finger Breadths: 2 ROM/Head Extension: Full Lungs: Clear to Auscultation, Normal Respiratory Effort Cardiovascular: Regular Rate, Regular Rhythm - Allergies Allergies/Adverse Reactions: Allergies Allergy/AdvReac Type Severity Reaction Status Date / Time No Known Allergies Allergy Verified 08/22/19 06:43 - Blood Blood Available: No - Anesthesia Plan Pre-Op Medication Ordered: None - Acknowledgements Anesthesia Type Planned: General Anesthesia Pt an Appropriate Candidate for the Planned Anesthesia: Yes Alternatives and Risks of Anesthesia Discussed w Pt/Guardian: Yes Pt/Guardian Understands and Agrees with Anesthesia Plan: Yes PreAnesthesia Questionnaire - Past Health History Medical/Surgical History: Denies Medical/Surgical History HEENT History: Reports: None Cardiovascular History: Reports: None Respiratory History: Reports: Sleep Apnea, Other (See Below) Other Respiratory History: does not use CPAP after loosing weight- had moderate sleep apnea Gastrointestinal History: Reports: Cholelithiasis Genitourinary History: Reports: None Musculoskeletal History: Reports: Fracture Other Musculoskeletal History: hx fx foot Neurological History: Reports: None Psychiatric History: Reports: None Endocrine/Metabolic History: Reports: Obesity/BMI 30+ Hematologic History: Reports: None Immunologic History: Reports: None Oncologic (Cancer) History: Reports: None Dermatologic History: Reports: None - Infectious Disease History Infectious Disease History: Reports: None - Past Surgical History Head Surgeries/Procedures: Reports: None HEENT Surgical History: Reports: None Respiratory Surgical History: Reports: None GI Surgical History: Reports: Hernia, Inguinal (bilateral) Other GI Surgeries/Procedures: kareen inguinal hernia repair Male Surgical History: Reports: None Endocrine Surgical History: Reports: None Neurological Surgical History: Reports: None Musculoskeletal Surgical History: Reports: None Oncologic Surgical History: Reports: None Dermatological Surgical History: Reports: None - SUBSTANCE USE Smoking Status *Q: Light Tobacco Smoker Tobacco Use Within Last Twelve Months: Cigarettes, Snuff/Dip - HOME MEDS Home Medications: Home Meds Multivitamin [Multivitamins] 1 tab PO DAILY 12/11/15 [History] Omeprazole 20 mg PO ACBREAKFAST 30 Days #30 cap.sr 07/17/19 [Rx] Fish Oil/[place]-3 Fatty Acids [Fish Oil 1,000 MG] 1,000 mg PO DAILY 08/22/19 [ History] - CURRENT (IN HOUSE) MEDS Current Meds: Current Medications Lactated Ringer's (Ringers, Lactated) 1,000 mls @ 125 mls/hr IV ASDIRECTED [facility] Last Admin: 08/25/19 07:10 Dose: 125 mls/hr Scopolamine (Transderm-Scop) 1.5 mg TRDERM Q72H PRN PRN Reason: Nausea Discontinued Medications Cefoxitin Sodium 2 gm/ Premix 50 mls @ 100 mls/hr IV ONETIME ONE Stop: 08/25/19 06:29
[2019-08-25] MEDS ORDERED: ceFAZolin 1 GM Vial ONE (07:30)
[2019-08-25] MEDS ORDERED: Bupivacaine 0.5% 10 ML SDV ONE (07:30)
[2019-08-25] MEDS ORDERED: Lidocaine 2% 5 ML SDV ONE (07:36)
[2019-08-25] MEDS ORDERED: fentaNYL 100 MCG/2 ML SDV ONE (07:36)
[2019-08-25] MEDS ORDERED: Propofol 200 MG/20 ML SDV ONE (07:36)
[2019-08-25] MEDS ORDERED: Midazolam 1 MG/ML 2 ML SDV ONE (07:36)
[2019-08-25] MEDS ORDERED: Rocuronium 100 MG/10 ML Syringe ONE (07:37)
[2019-08-25] MEDS ORDERED: ceFAZolin/Dextrose,Iso-Osmotic 2 GM/50 ML Duplex Bag IV ONE (07:37)
[2019-08-25] MEDS ORDERED: cefOXitin 1 GM Vial ONE (07:41)
[2019-08-25] MEDS ORDERED: Sodium Chloride 0.9% 20 ML ONE (07:41)
[2019-08-25] MEDS ORDERED: HYDROmorphone 2 MG/ML Syringe ONE (08:36)
[2019-08-25] MEDS ORDERED: Dexamethasone 4 MG/ML 5 ML MDV ONE (08:37)
[2019-08-25] MEDS ORDERED: Metoclopramide 10 MG/2 ML SDV ONE (08:37)
[2019-08-25] MEDS ORDERED: Meperidine PF 25 MG/ML Syringe IV PRN (08:45)
[2019-08-25] MEDS ORDERED: Promethazine 25 MG/ML SDV IM PRN (08:46)
[2019-08-25] MEDS ORDERED: Acetaminophen 1,000 MG in Premix Bag 1 BAG IV PRN (08:47)
[2019-08-25] MEDS ORDERED: Neostigmine Methylsulfate 1 MG/ML 5 ML Syringe ONE (09:03)
[2019-08-25] MEDS ORDERED: Glycopyrrolate 0.2 MG/ML SDV ONE (09:03)
[2019-08-25] MEDS ORDERED: Ondansetron 4 MG/2 ML SDV ONE (09:03)
[2019-08-25] MEDS ORDERED: Ketorolac 30 MG/ML SDV ONE (09:22)
[2019-08-25] MEDS ORDERED: Acetaminophen/HYDROcodone 325-5 MG Tab PO PRN (09:46)
[2019-08-25] MEDS ORDERED: Morphine 10 MG/ML Syringe IVPUSH PRN (09:46)
--- NOTE | 2019-08-25 09:48 | PCM.OPNOTE ---
- General Post-Op/Procedure Note Date of Surgery/Procedure: 08/25/19 Operative Procedure(s): Laparoscopic cholecystectomy Pre Op Diagnosis: Symptomatic cholelithiasis Post-Op Diagnosis: Cholelithiasis with cholecystitis Anesthesia Technique: General ET Tube (ASA II) Primary Surgeon: Clarke Copeland Intelligence Senior Sergeant: Estela James Reason Intelligence Senior Sergeant Was Necessary: Exposure and camera Fluid Replacement, Intraop: 1,000 Output, Urine Amount: 200 EBL in mLs: 10 Condition: Good Free Text/Narrative:: DICTATION 401198 CPT CODE 61105
[2019-08-25] MEDS ORDERED: Lactated Ringers 1,000 ML IV SCH (10:00)
[2019-08-25] MEDS: fentaNYL 100 MCG/2 ML SDV IVPUSH PRN ×2 (10:11→10:16)
--- NOTE | 2019-08-25 10:25 | PCM.POSTAN ---
POST ANESTHESIA ASSESSMENT - MENTAL STATUS Mental Status: Alert - VITAL SIGNS Vital Signs: Last Vital Signs Temp 36.2 C 08/25/19 09:43 Pulse 80 08/25/19 10:18 Resp 9 L 08/25/19 10:18 BP 144/83 H 08/25/19 10:18 Pulse Ox 95 08/25/19 10:18 - RESPIRATORY Respiratory Status: Respiratory Rate WNL - CARDIOVASCULAR CV Status: Pulse Rate WNL - GASTROINTESTINAL GI Status: No Symptoms - POST OP HYDRATION Hydration Status: Adequate & Stable
--- NOTE | 2019-08-25 11:07 | OR ---
SURGEON: Clarke Copeland M.D. DATE OF PROCEDURE: 08/25/2019 OPERATION PERFORMED: Laparoscopic cholecystectomy. PHARMACY TEACHER: assistant head cashier: RICARDA Malone. ANESTHESIA: General endotracheal ASA CLASSIFICATION: 2. PREOPERATIVE DIAGNOSIS: Symptomatic cholelithiasis. POSTOPERATIVE DIAGNOSIS: Cholelithiasis with mild cholecystitis. INTRAOPERATIVE FLUID REPLACEMENT: 1000 mL. INTRAOPERATIVE URINE OUTPUT: 200 mL. ESTIMATED BLOOD LOSS: 10 mL. DESCRIPTION OF PROCEDURE: The patient was taken to the operating room, placed on the operating table in the supine position. Time-out was called for appropriate identification of the patient and procedure. Thigh-high TEDs and sequential compression boots were placed. Following satisfactory attainment of general endotracheal anesthesia, a Turner catheter was placed in the patient's urinary bladder. The abdomen was prepped with ChloraPrep and sterile drapes were applied. The skin just below the umbilicus was infiltrated with 0.5% Marcaine solution. The skin incision was made and deepened through the subcutaneous tissue obtaining hemostasis with the use of electrocautery. The Veress needle was introduced into the peritoneal cavity. Saline drop test was positive. Carbon dioxide pneumoperitoneum was established with the relief set at 13 cm of water. Once a satisfactory pneumoperitoneum was established, 5-mm camera and port were placed through the infraumbilical incision. The patient was positioned with his feet down and rolled to the left. Under camera vision, 12 mm subxiphoid, 5 mm midclavicular, and 5 mm anterior axillary ports were serially placed. Each incision was preemptively infiltrated with 0.5% Marcaine solution. The gallbladder was grasped, adhesions were taken down, and the cholecystohepatic triangle was dissected free identifying the cystic duct first. Critical view was obtained and the cystic duct was hemoclipped and divided. The cystic artery was next dissected free and again a good critical view was obtained. The cystic artery was hemoclipped and divided with the laparoscopic Metzenbaum scissor. The gallbladder was then dissected away from its bed using electrocautery. Small bleeding sites were electrocoagulated. No bile or stones were spilled. Once the gallbladder was amputated, it was placed in an Endo Catch and maintained in situ. The gallbladder bed was then inspected for hemostasis and small bleeding sites were electrocoagulated. The right upper quadrant was irrigated with sterile saline solution. All fluid was aspirated. The right hemidiaphragm was next irrigated with 250 mL of saline containing 20 mL of 0.5% Marcaine solution. That fluid was left in place. The bed of the gallbladder was again inspected and minimal oozing was noted. Surgicel was placed into the bed of the gallbladder. Under camera vision, the 12 mm port and Endo Catch containing gallbladder were removed. Again, under camera vision, 5 mm midclavicular and anterior axillary ports were removed and finally the infraumbilical camera and port were removed. Wounds were inspected for hemostasis and small bleeding sites were electrocoagulated. The subxiphoid and infraumbilical incisions were closed in 2 layers approximating the subcutaneous tissue with 3-0 Vicryl and skin with subcuticular 4-0 Monocryl. The anterior axillary and midclavicular incisions were closed with subcuticular 4-0 Monocryl. All incisions were Steri- Stripped and dressed with sterile Tegaderm pads. Sponge, needle, and instrument counts were all correct. Prior to emergence from anesthesia, the Turner catheter was removed. Following emergence from anesthesia and extubation, the patient was taken to recovery room in stable condition. TAE / JARETH /[id number]
[2019-08-25 14:09] VITALS: BP 134/86
[2019-08-25 14:10] VITALS: PULSE 73
--- NOTE | 2019-08-25 14:47 | PCM48HPAN ---
Post Anesthesia Note - EVALUATION WITHIN 48HRS OF ANESTHETIC Vital Signs in Normal Range: Yes Patient Participated in Evaluation: Yes Respiratory Function Stable: Yes Airway Patent: Yes Cardiovascular Function Stable: Yes Hydration Status Stable: Yes Pain Control Satisfactory: Yes Nausea and Vomiting Control Satisfactory: Yes Mental Status Recovered: Yes Vital Signs: Last Vital Signs Temp 36.4 C 08/25/19 10:29 Pulse 73 08/25/19 13:00 Resp 16 08/25/19 13:00 BP 134/86 08/25/19 13:00 Pulse Ox 95 08/25/19 13:00 - COMMENTS/OBSERVATIONS Free Text/Narrative:: NO anesthesia problems
[2019-08-25] MEDS ORDERED: Ibuprofen 600 MG Tab PO ONE (14:49)
== END 2019-08-25 15:23 | disposition home or self-care (01) ==
LOC: MW.SDS 06:41
PROVIDERS: ATTEND Surgery
DX: K80.10 Calculus of gallbladder with chronic cholecystitis without obstruction (principal); K82.1 Hydrops of gallbladder; F17.210 Nicotine dependence, cigarettes, uncomplicated; E66.9 Obesity, unspecified; Z68.31 Body mass index [BMI] 31.0-31.9, adult
CPT/HCPCS: 47562; A9270; J0131; J0694; J1100; J1170; J1885; J2001; J2250; J2405; J2704; J2765; J3010; J3490; J7120; 00790; J0690

== ENCOUNTER 2021-07-18 02:35 | Emergency (ER) | payer BC, OTHER ==
--- NOTE | 2021-07-18 04:16 | CR ---
INDICATION: Shortness of breath TECHNIQUE: Single view chest. FINDINGS: The lungs are clear. The heart, mediastinum and pulmonary vessels are of normal size. There is no evidence of pleural disease. IMPRESSION: Negative chest. Dictated by Naye Newton MD @ 07/18/2021 4:15:41 AM (Electronically Signed)
[2021-07-18 04:23] LABS: BLOOD UREA NITROGEN,BUN 14 mg/dL (7.0-18.0); CARBON DIOXIDE,CO2 27.9 mmol/L (21.0-32.0); CHLORIDE,CL 103 mmol/L (98-107); GLUCOSE RANDOM 139 mg/dL (74-106); POTASSIUM,K 3.9 mmol/L (3.5-5.1); SODIUM,NA 139 mmol/L (136-148)
[2021-07-18] MEDS ORDERED: Amoxicillin/Clavulanate K 875-125 MG Tab PO ONE (04:46)
--- NOTE | 2021-07-18 05:01 | PCM.EKG ---
#1 Interpretation EKG Date: 07/18/21 Time: 03:53 Rhythm: NSR Rate (Beats/Min): 81 [place]: Normal P-Wave: Present QRS: Normal ST-T: Normal QT: Normal Comparison: Change From Previous EKG (12/24/16 -> NO [id number]) EKG Interpretation Comments: Sinus Rhythm with [id number]
--- NOTE | 2021-07-18 05:25 | EDM.PDOC ---
ED HPI GENERAL MEDICAL PROBLEM - General Chief Complaint: General Stated Complaint: FEELING WEIRD Time Seen by Provider: 07/18/21 03:13 - History of Present Illness INITIAL COMMENTS - FREE TEXT/NARRATIVE: CHIEF COMPLAINT(S): "Feeling weird." HISTORY OF PRESENT ILLNESS: This is a 30-year-old man without any significant past medical history who presents to the emergency department with a chief complaint of "feeling weird." The patient states that he is feeling weird. He states that he was seen at an outpatient clinic where he was diagnosed with viral sinusitis and bronchitis and was prescribed prednisone 10 mg daily. He states that since taking the prednisone he has been feeling strange. He describes a pounding heart rate, tachycardia and feels like both of his eyes are irritated and watery. He states that he just does not feel well. He presents with his significant other who is concerned and wants a D-dimer drawn. They states that they just had a family member secondary to a pulmonary embolism and there is a significant family history of clotting. He denies any lower extremity edema, shortness of breath or cough. He denies any hemoptysis. He states he thinks that this is secondary to steroids as he was given a Medrol Dosepak in the past and this is different. He has not used any albuterol since this morning. He denies any pain. He states that he still having sinus congest ion and was told that if he had continued issues by today that they would start him on antibiotics. REVIEW OF SYSTEMS: Constitutional: Denies fever, chills. Eyes: Denies eye pain Ears, Nose, Mouth, & Throat: Bilateral eye watering and nasal congestion. Denies earache Cardiovascular: Positive for palpitations. Respiratory: Denies shortness of breath Gastrointestinal: Denies Nausea, vomiting, diarrhea, hematochezia. Genitourinary: Denies hematuria Skin:Denies a rash MSK: Denies joint pain Neurological: Denies blurred vision Psychiatric: Denies depression PAST MEDICAL HISTORY: As per history of present illness and as reviewed below otherwise noncontributory. SURGICAL HISTORY: As per history of present illness and as reviewed below otherwise noncontributory. SOCIAL HISTORY: As per history of present illness and as reviewed below otherwise noncontributory. FAMILY HISTORY: As per history of present illness and as reviewed below otherwise noncontributory. EXAMINATION OF ORGAN SYSTEMS/BODY AREAS: Constitutional: Blood pressure is 144/91, heart rate 86, respiratory rate 16 with an oxygen saturation of 97% on room air. Temperature 36.7 General: Young man who does not appear to be in acute distress Psychiatric: Appropriate mood and affect. Eyes: No scleral icterus or conjunctival erythema pupils are equal round and reactive to light. Extraocular movements intact. No nystagmus noted. ENMT: Moist mucous membranes. No pharyngeal erythema bilateral nasal turbinates with clear nasal drainage. Bilateral tympanic membranes without any bulging or erythema. No stridor, drooling, trismus. Cardiovascular: Regular, rate, and rhythm. No gallops, murmurs, or rubs. Bilateral upper extremity pulses symmetric and intact. No peripheral edema. No JVD. Respiratory: Lungs clear to auscultation bilaterally. No wheezes, rales, or rhonchi. Gastrointestinal: Soft, non-tender, non-distended. Normoactive bowel sounds Genitourinary: No suprapubic tenderness Musculoskeletal: Normal range of motion. Skin: No lesions or abrasions. Neurological: Alert, GCS 15 MEDICAL DECISION MAKING AND COURSE IN THE ED WITH INTERPRETATION/REVIEW OF DIAGNOSTIC STUDIES: This is a 30-year-old man with a past medical history of bronchitis and recent sinusitis for approximately 5 days now who is on prednisone who presents to the emergency department with palpitations and bilateral eye watering without any evidence of abnormality on examination. Given his duration of his sinusitis will start the patient Augmentin. We did obtain a screening EKG which was unremarkable. Given the patient's family history we will obtain basic labs including CBC, CMP and a D-dimer. I did offer Covid and influenza swabs. He states that he does not want those at this time. Will obtain a chest x-ray. He was amenable to the plan had no further questions DDx: Sinusitis, steroid side effect, bronchitis Laboratory: CBC is unremarkable. D-dimer is negative. CMP is unremarkable. The radiological images were viewed by myself along with reading the report from the radiologist. Chest x-ray does not reveal an acute cardiopulmonary process. After labs I did discuss the results with the patient. At this time I did discuss symptomatic treatment at home. I did discuss that I be sending him antibiotics for his acute sinusitis. I discussed if he has any new or worsening symptoms he should return to the emergency department. At this time I do believe the patient symptoms are likely secondary to his steroid use. At this time he is on such a low dose I did discuss that if he would like he can stop his steroids as he is saturating appropriately without any wheezing. He was amenable to this plan and had no further questions DISPOSITION: The patient was discharged home in stable condition. The patient will follow up with primary care physician in 3 to 5 days CONDITION: Fair PROCEDURES: None FINAL IMPRESSION(S)/DIAGNOSES: 1. Acute sinusitis 2. Acute palpitations likely secondary to medication side effect Chris Sepulveda M.D. - Related Data Allergies Allergy/AdvReac Type Severity Reaction Status Date / Time No Known Allergies Allergy Verified 07/18/21 03:05 Home Meds: Home Meds Multivitamin [Multivitamins] 1 tab PO DAILY 12/11/15 [History] Omeprazole 20 mg PO ACBREAKFAST 30 Days #30 cap.sr 07/17/19 [Rx] Fish Oil/[place]-3 Fatty Acids [Fish Oil 1,000 MG] 1,000 mg PO DAILY 08/22/19 [History] Amoxicillin/Clavulanate K [Augmentin 875-125 MG] 1 tab PO BID #14 tablet 07/18/21 [Rx] Past Medical History - Past Health History Medical/Surgical History: Denies Medical/Surgical History HEENT History: Reports: None Cardiovascular History: Reports: None Respiratory History: Reports: Sleep Apnea, Other (See Below) Other Respiratory History: does not use CPAP after loosing weight- had moderate sleep apnea Gastrointestinal History: Reports: Cholelithiasis Genitourinary History: Reports: None Musculoskeletal History: Reports: Fracture Other Musculoskeletal History: hx fx foot Neurological History: Reports: None Psychiatric History: Reports: None Endocrine/Metabolic History: Reports: Obesity/BMI 30+ Hematologic History: Reports: None Immunologic History: Reports: None Oncologic (Cancer) History: Reports: None Dermatologic History: Reports: None - Infectious Disease History Infectious Disease History: Reports: None - Past Surgical History Head Surgeries/Procedures: Reports: None HEENT Surgical History: Reports: None Respiratory Surgical History: Reports: None GI Surgical History: Reports: Hernia, Inguinal Other GI Surgeries/Procedures: kareen inguinal hernia repair Male Surgical History: Reports: None Endocrine Surgical History: Reports: None Neurological Surgical History: Reports: None Musculoskeletal Surgical History: Reports: None Oncologic Surgical History: Reports: None Dermatological Surgical History: Reports: None Social & Family History - Family History Family Medical History: No Pertinent Family History - Caffeine Use Caffeine Use: Reports: Coffee, Soda - Recreational Drug Use Recreational Drug Use: No ED ROS GENERAL - Review of Systems Review Of Systems: See Below ED EXAM, GENERAL - Physical Exam Exam: See Below Course - Vital Signs Last Recorded V/S: Last Vital Signs Temp 36.8 C 07/18/21 05:33 Pulse 71 07/18/21 05:33 Resp 16 07/18/21 05:33 BP 119/75 07/18/21 05:33 Pulse Ox 96 07/18/21 05:33 - Orders/Labs/Meds Labs: Laboratory Tests 07/18/21 07/18/21 07/18/21 Range/Units 03:55 03:55 03:55 WBC 9.47 (4.0-11.0) K/uL RBC 4.98 (4.50-5.90) M/uL Hgb 14.7 (13.0-17.0) g/dL Hct 43.2 (38.0-50.0) % MCV 86.7 (80.0-98.0) fL MCH 29.5 (27.0-32.0) pg MCHC 34.0 (31.0-37.0) g/dL RDW Std Deviation 40.8 (28.0-62.0) fl RDW Coeff of Alyx 13 (11.0-15.0) % Plt Count 256 (150-400) K/uL MPV 10.50 (7.40-12.00) fL Neut % (Auto) 66.6 (48.0-80.0) % Lymph % (Auto) 22.9 (16.0-40.0) % [place] % (Auto) 8.7 (0.0-15.0) % Eos % (Auto) 1.6 (0.0-7.0) % Baso % (Auto) 0.2 (0.0-1.5) % Neut # (Auto) 6.3 H (1.4-5.7) K/uL Lymph # (Auto) 2.2 (0.6-2.4) K/uL [place] # (Auto) 0.8 (0.0-0.8) K/uL Eos # (Auto) 0.2 (0.0-0.7) K/uL Baso # (Auto) 0.0 (0.0-0.1) K/uL Nucleated RBC % 0.0 /100WBC Nucleated RBCs # 0 K/uL D-Dimer, Quantitative < 0.19 (0.0-0.50) mg/L FEU Sodium 139 (136-148) mmol/L Potassium 3.9 (3.5-5.1) mmol/L Chloride 103 (98-107) mmol/L Carbon Dioxide 27.9 (21.0-32.0) mmol/L BUN 14 (7.0-18.0) mg/dL Creatinine 1.1 (0.8-1.3) mg/dL Est Cr Clr Drug Dosing 116.24 mL/min Estimated GFR (MDRD) > 60.0 ml/min Glucose 139 H (74-106) mg/dL Calcium 8.3 L (8.5-10.1) mg/dL Total Bilirubin 0.3 (0.2-1.0) mg/dL AST 21 (15-37) IU/L ALT 64 H (14-63) IU/L Alkaline Phosphatase 101 (46-116) U/L Troponin I < 0.050 (0.000-0.056) ng/mL Total Protein 8.1 (6.4-8.2) g/dL Albumin 3.7 (3.4-5.0) g/dL Globulin 4.4 H (2.6-4.0) g/dL Albumin/Globulin Ratio 0.8 L (0.9-1.6) Meds: Medications Discontinued Medications Generic Name Dose Route Start Last Admin Trade Name Freq PRN Reason Stop Dose Admin Amoxicillin/Clavulanate Potassium 1 tab 07/18/21 04:46 07/18/21 05:13 Amoxicillin/Clavulanate K 875-125 Mg Tab PO 07/18/21 04:47 1 tab ONETIME ONE Administration Departure - Departure Time of Disposition: 05:23 Disposition: Home, Self-Care 01 Condition: Fair Clinical Impression: Palpitations, Sinusitis - Discharge Information *PRESCRIPTION DRUG MONITORING PROGRAM REVIEWED*: No *COPY OF PRESCRIPTION DRUG MONITORING REPORT IN PATIENT KYLE: No Prescriptions: Amoxicillin/Clavulanate K [Augmentin 875-125 MG] 1 tab PO BID #14 tablet Instructions: Sinusitis, Adult, [id number], Palpitations, [id number] Referrals: PCP,None [Primary Care Provider] - Forms: ED Department Discharge Additional Instructions: Your evaluated today on an emergent basis. At this time all of your labs are within normal limits including your chest x-ray. Given the duration of your sinus infection we did start you on antibiotics today. I recommend you take this twice a day. If you have continued symptoms I would like you to follow-up with your primary care physician for a possible placement of what is called a Zio patch. If you have any chest pain, shortness of breath or you are concerned you are welcome to revisit the emergency department. I do believe your symptoms are likely secondary to side effect from prednisone. As discussed you may stop that completely today otherwise take 5 mg today, 2.5 mg tomorrow and then stop. [facility] [address] [place] [address] [place] [address] The patient is informed of any results of their evaluation and diagnostic workup and all questions are answered. They are given discharge instructions and return precautions. The patient is stable for discharge. The patient states they understand and agree with the plan and that they will return if their symptoms get worse or if they have any new concerns. The following information is given to patients seen in the emergency department who are being discharged to home. This information is to outline your options for follow-up care. We provide all patients seen in our emergency department with a follow-up referral. The need for follow-up, as well as the timing and circumstances, are variable depending upon the specifics of your emergency department visit. If you don't have a primary care physician on staff, we will provide you with a referral. We always advise you to contact your personal physician following an emergency department visit to inform them of the circumstance of the visit and for follow-up with them and/or the need for any referrals to a consulting specialist. The emergency department will also refer you to a specialist when appropriate. This referral assures that you have the opportunity for follow-up care with a specialist. All of these measure are taken in an effort to provide you with optimal care, which includes your follow-up. Under all circumstances we always encourage you to contact your private physician who remains a resource for coordinating your care. When calling for follow-up care, please make the office aware that this follow-up is from your recent emergency room visit. If for any reason you are refused follow-up, please contact the [facility] Emergency Department at and asked to speak to the emergency department charge nurse. Sepsis Event Note (ED) - Evaluation Sepsis Screening Result: No Definite Risk
[2021-07-18 05:35] VITALS: BP 119/75; PULSE 71
== END 2021-07-18 05:34 | disposition home or self-care (01) ==
LOC: MW.ED 02:35
DX: J01.90 Acute sinusitis, unspecified (principal); R00.2 Palpitations; E66.9 Obesity, unspecified; Z68.32 Body mass index [BMI] 32.0-32.9, adult
CPT/HCPCS: 36415; 71045; 80053; 84484; 85025; 85379; 99285; A9270

== ENCOUNTER 2021-08-09 14:42 | Emergency (ER) | payer BC, OTHER ==
[2021-08-09] MEDS ORDERED: Sodium Chloride 0.9% 2.5 ML Syringe FLUSH PRN (15:12)
[2021-08-09] MEDS ORDERED: Sodium Chloride 0.9% 10 ML Syringe FLUSH PRN (15:12)
--- NOTE | 2021-08-09 15:22 | EDM.PDOC ---
ED HPI GENERAL MEDICAL PROBLEM - General Chief Complaint: General Stated Complaint: CHEST PAIN Time Seen by Provider: 08/09/21 14:44 Source of Information: Reports: Patient History Limitations: Reports: No Limitations - History of Present Illness INITIAL COMMENTS - FREE TEXT/NARRATIVE: HISTORY AND PHYSICAL: History of present illness: Patient is an otherwise healthy 30-year-old male resents emergency room today with concern of right sided chest pain. Patient states that over the course of the past 1 month, he has been having issues with viral syndrome. Patient states he initially went to the [facility] walk-in clinic and was given prednisone but states that he was having a hard time sleeping and feeling weird so he came to the emergency room. He states that when he was here in the emergency room, that provider told him to stop taking prednisone as this could be causing his symptoms, and gave him Augmentin for a sinus infection. Patient states that since then, he has had some residual right-sided rib pain but states that starting this morning, he is now having right-sided chest pain. Patient states that he does have a family history of pulmonary embolism and clotting disorders although patient states that he himself does not believe to have this, is unsure. Patient states that when he was here in the emergency room, he had a D- dimer that was tested and it was negative. Patient denies any other symptoms or concerns. Patient denies fever, chills, shortness of breath, or cough. Denies headache, neck stiff ness, change in vision, syncope, or near syncope. Denies nausea, vomiting, abdominal pain, diarrhea, constipation, or dysuria. Has not noted any blood in urine or stool. Patient has been eating and drinking appropriately. Review of systems: As per history of present illness and below otherwise all systems reviewed and negative. Past medical history: As per history of present illness and as reviewed below otherwise noncontributory. Surgical history: As per history of present illness and as reviewed below otherwise noncontributory. Social history: See social history for further information Family history: As per history of present illness and as reviewed below otherwise noncontributory. Physical exam: General: Patient is alert, oriented, and in no acute distress. Patient sitting comfortably on exam table. Vitals stable and reviewed by me. HEENT: Atraumatic, normocephalic, pupils equal and reactive bilaterally, negative for conjunctival pallor or scleral icterus, mucous membranes moist, throat clear, neck supple, nontender, trachea midline. No drooling or trismus noted. No meningeal signs. No hot potato voice noted. Lungs: Clear to auscultation, breath sounds equal bilaterally, chest nontender. Heart: S1S2, regular rate and rhythm without overt murmur Abdomen: Soft, nondistended, nontender. Negative for masses or hepatosplenomegaly. Negative for costovertebral tenderness. Pelvis: Stable nontender. Genitourinary: Deferred. Rectal: Deferred. Skin: Intact, warm, dry. No lesions or rashes noted. Extremities: Atraumatic, negative for cords or calf pain. Neurovascular unremarkable. Neuro: Awake, alert, oriented. Cranial nerves II through XII unremarkable. Cerebellum unremarkable. Motor and sensory unremarkable throughout. Exam nonfocal. Medical Decision Making: Patient is an otherwise healthy 30-year-old male who presents emergency room today with concern of right-sided chest pain beginning this morning. Upon arrival to the ED, patient is vitally stable and well-appearing on exam and exam is otherwise unremarkable. On chart review from patient, he was seen here in our emergency room on 07/18/2021. At that time, he was seen for "feeling weird "and was given Augmentin for acute sinusitis and told to stop prednisone as thought this could be causing his symptoms. At that time, he did have a negative D-dimer test. Given that patient is now return back to the emergency room with worsening and continued symptoms, will repeat cardiac evaluation and obtain Ang CT chest, obtain COVID/Flu testing and mono. See Dr. Edge dictation for specific EKG interpretation. Otherwise, normal sinus rhythm without STEMI. CBC and CMP mild derangements are unremarkable. Troponin negative. Influenza, Covid, mono negative. Angiography of the chest shows no cause of right-sided chest pain identified. No pulmonary embolism. On reevaluation of patient, remains vitally stable and comfortable throughout stay in ED. Strict return precautions thoroughly discussed with patient. Discussed importance for follow-up with a primary care provider. Voices understanding and is agreeable to plan of care. Denies any further questions or concerns at this time. Diagnostics: EKG, CBC, CMP, Trop, DDimer, Ang CT chest, COVID/Flu, [employer]: Saline lock Prescription: None Impression: Atypical chest pain Plan: 1. You can alternate ibuprofen and Tylenol instructed for pain and discomfort. 2. Follow-up with a primary care provider as discussed. Return to the ED as needed and as discussed. Definitive disposition and diagnosis as appropriate pending reevaluation and review of above. Right Lower Chest Pain Score (Numeric/FACES): 6 - Related Data Allergies Allergy/AdvReac Type Severity Reaction Status Date / Time No Known Allergies Allergy Verified 07/18/21 03:05 Home Meds: Home Meds Multivitamin [Multivitamins] 1 tab PO DAILY 12/11/15 [History] Omeprazole 20 mg PO ACBREAKFAST 30 Days #30 cap.sr 07/17/19 [Rx] Fish Oil/[place]-3 Fatty Acids [Fish Oil 1,000 MG] 1,000 mg PO DAILY 08/22/19 [History] Amoxicillin/Clavulanate K [Augmentin 875-125 MG] 1 tab PO BID #14 tablet 07/18/21 [Rx] Past Medical History - Past Health History Medical/Surgical History: Denies Medical/Surgical History HEENT History: Reports: None Cardiovascular History: Reports: None Respiratory History: Reports: Sleep Apnea, Other (See Below) Other Respiratory History: does not use CPAP after loosing weight- had moderate sleep apnea Gastrointestinal History: Reports: Cholelithiasis Genitourinary History: Reports: None Musculoskeletal History: Reports: Fracture Other Musculoskeletal History: hx fx foot Neurological History: Reports: None Psychiatric History: Reports: None Endocrine/Metabolic History: Reports: Obesity/BMI 30+ Hematologic History: Reports: None Immunologic History: Reports: None Oncologic (Cancer) History: Reports: None Dermatologic History: Reports: None - Infectious Disease History Infectious Disease History: Reports: None - Past Surgical History Head Surgeries/Procedures: Reports: None HEENT Surgical History: Reports: None Respiratory Surgical History: Reports: None GI Surgical History: Reports: Hernia, Inguinal Other GI Surgeries/Procedures: kareen inguinal hernia repair Male Surgical History: Reports: None Endocrine Surgical History: Reports: None Neurological Surgical History: Reports: None Musculoskeletal Surgical History: Reports: None Oncologic Surgical History: Reports: None Dermatological Surgical History: Reports: None Social & Family History - Family History Family Medical History: No Pertinent Family History - Caffeine Use Caffeine Use: Reports: Coffee, Soda ED ROS GENERAL - Review of Systems Review Of Systems: Comprehensive ROS is negative, except as noted in HPI. ED EXAM, GENERAL - Physical Exam Exam: See Below (see dictation) Course - Vital Signs Last Recorded V/S: Last Vital Signs Temp 97.4 F 08/09/21 15:16 Pulse 75 08/09/21 17:50 Resp 17 08/09/21 17:50 BP 132/76 08/09/21 17:50 Pulse Ox 98 08/09/21 17:50 - Orders/Labs/Meds Orders: Active Orders 24 hr Category Date Time Status Saline Lock Insert [OM.PC] Stat Oth 08/09/21 15:12 Ordered Labs: Laboratory Tests 08/09/21 08/09/21 08/09/21 Range/Units 15:00 15:00 15:00 WBC 7.32 (4.0-11.0) K/uL RBC 5.20 (4.50-5.90) M/uL Hgb 15.6 (13.0-17.0) g/dL Hct 45.7 (38.0-50.0) % MCV 87.9 (80.0-98.0) fL MCH 30.0 (27.0-32.0) pg MCHC 34.1 (31.0-37.0) g/dL RDW Std Deviation 42.5 (28.0-62.0) fl RDW Coeff of Alyx 13 (11.0-15.0) % Plt Count 214 (150-400) K/uL MPV 11.40 (7.40-12.00) fL Neut % (Auto) 58.1 (48.0-80.0) % Lymph % (Auto) 29.6 (16.0-40.0) % [place] % (Auto) 8.6 (0.0-15.0) % Eos % (Auto) 3.4 (0.0-7.0) % Baso % (Auto) 0.3 (0.0-1.5) % Neut # (Auto) 4.3 (1.4-5.7) K/uL Lymph # (Auto) 2.2 (0.6-2.4) K/uL [place] # (Auto) 0.6 (0.0-0.8) K/uL Eos # (Auto) 0.3 (0.0-0.7) K/uL Baso # (Auto) 0.0 (0.0-0.1) K/uL Nucleated RBC % 0.0 /100WBC Nucleated RBCs # 0 K/uL D-Dimer, Quantitative < 0.19 (0.0-0.50) mg/L FEU Sodium 142 (136-148) mmol/L Potassium 3.5 (3.5-5.1) mmol/L Chloride 105 (98-107) mmol/L Carbon Dioxide 29.2 (21.0-32.0) mmol/L BUN 11 (7.0-18.0) mg/dL Creatinine 1.0 (0.8-1.3) mg/dL Est Cr Clr Drug Dosing 127.87 mL/min Estimated GFR (MDRD) > 60.0 ml/min Glucose 83 (74-106) mg/dL Calcium 9.1 (8.5-10.1) mg/dL Total Bilirubin 0.5 (0.2-1.0) mg/dL AST 19 (15-37) IU/L ALT 45 (14-63) IU/L Alkaline Phosphatase 93 (46-116) U/L Troponin I < 0.050 (0.000-0.056) ng/mL Total Protein 8.2 (6.4-8.2) g/dL Albumin 3.9 (3.4-5.0) g/dL Globulin 4.3 H (2.6-4.0) g/dL Albumin/Globulin Ratio 0.9 (0.9-1.6) Lipase 103 (73-393) U/L Monoscreen (NEG) Influenza Type A RNA (NEGATIVE) Influenza Type B RNA (NEGATIVE) SARS-CoV-2 RNA (SPENSER) (NEGATIVE) 08/09/21 08/09/21 Range/Units 15:00 15:11 WBC (4.0-11.0) K/uL RBC (4.50-5.90) M/uL Hgb (13.0-17.0) g/dL Hct (38.0-50.0) % MCV (80.0-98.0) fL MCH (27.0-32.0) pg MCHC (31.0-37.0) g/dL RDW Std Deviation (28.0-62.0) fl RDW Coeff of Alyx (11.0-15.0) % Plt Count (150-400) K/uL MPV (7.40-12.00) fL Neut % (Auto) (48.0-80.0) % Lymph % (Auto) (16.0-40.0) % [place] % (Auto) (0.0-15.0) % Eos % (Auto) (0.0-7.0) % Baso % (Auto) (0.0-1.5) % Neut # (Auto) (1.4-5.7) K/uL Lymph # (Auto) (0.6-2.4) K/uL [place] # (Auto) (0.0-0.8) K/uL Eos # (Auto) (0.0-0.7) K/uL Baso # (Auto) (0.0-0.1) K/uL Nucleated RBC % /100WBC Nucleated RBCs # K/uL D-Dimer, Quantitative (0.0-0.50) mg/L FEU Sodium (136-148) mmol/L Potassium (3.5-5.1) mmol/L Chloride (98-107) mmol/L Carbon Dioxide (21.0-32.0) mmol/L BUN (7.0-18.0) mg/dL Creatinine (0.8-1.3) mg/dL Est Cr Clr Drug Dosing mL/min Estimated GFR (MDRD) ml/min Glucose (74-106) mg/dL Calcium (8.5-10.1) mg/dL Total Bilirubin (0.2-1.0) mg/dL AST (15-37) IU/L ALT (14-63) IU/L Alkaline Phosphatase (46-116) U/L Troponin I (0.000-0.056) ng/mL Total Protein (6.4-8.2) g/dL Albumin (3.4-5.0) g/dL Globulin (2.6-4.0) g/dL Albumin/Globulin Ratio (0.9-1.6) Lipase (73-393) U/L Monoscreen NEGATIVE (NEG) Influenza Type A RNA NEGATIVE (NEGATIVE) Influenza Type B RNA NEGATIVE (NEGATIVE) SARS-CoV-2 RNA (SPENSER) NEGATIVE (NEGATIVE) Meds: Medications Discontinued Medications Generic Name Dose Route Start Last Admin Trade Name Freq PRN Reason Stop Dose Admin Iopamidol 100 ml 08/09/21 18:55 08/09/21 18:56 Iopamidol 755 Mg/Ml 500 Ml Multipack Bottle IVPUSH 08/09/21 18:56 100 ml ONETIME ONE Administration Sodium Chloride 2.5 ml 08/09/21 15:12 08/09/21 15:25 Sodium Chloride 0.9% 2.5 Ml Syringe FLUSH 2.5 ml ASDIRECTED PRN Administration Keep Vein Open Sodium Chloride 10 ml 08/09/21 15:12 08/09/21 15:25 Sodium Chloride 0.9% 10 Ml Syringe FLUSH 10 ml ASDIRECTED PRN Administration Keep Vein Open Departure - Departure Time of Disposition: 17:35 Disposition: Home, Self-Care 01 Clinical Impression: Atypical chest pain - Discharge Information Instructions: Nonspecific Chest Pain, Adult, [id number] Referrals: PCP,None [Primary Care Provider] - Forms: ED Department Discharge Additional Instructions: The following information is given to patients seen in the emergency department who are being discharged to home. This information is to outline your options for follow-up care. We provide all patients seen in our emergency department with a follow-up referral. The need for follow-up, as well as the timing and circumstances, are variable depending upon the specifics of your emergency department visit. If you don't have a primary care physician on staff, we will provide you with a referral. We always advise you to contact your personal physician following an emergency department visit to inform them of the circumstance of the visit and for follow-up with them and/or the need for any referrals to a consulting specialist. The emergency department will also refer you to a specialist when appropriate. This referral assures that you have the opportunity for follow-up care with a specialist. All of these measure are taken in an effort to provide you with optimal care, which includes your follow-up. Under all circumstances we always encourage you to contact your private physician who remains a resource for coordinating your care. When calling for follow-up care, please make the office aware that this follow-up is from your recent emergency room visit. If for any reason you are refused follow-up, please contact the [facility] Emergency Department at and asked to speak to the emergency department charge nurse. [facility] [address] [place] [address] [facility] [address] [place] [address] 1. You can alternate ibuprofen and Tylenol as directed for pain and discomfort. 2. Follow-up with a primary care provider as discussed. Return to the ED as ne eded and as discussed. Sepsis Event Note (ED) - Focused Exam Vital Signs: Vital Signs Temp Pulse Resp BP Pulse Ox 08/09/21 17:50 75 17 132/76 98 08/09/21 15:16 97.4 F 74 16 153/86 H 98 - My Orders Last 24 Hours: My Active Orders 08/09/21 15:12 Saline Lock Insert [OM.PC] Stat - Assessment/Plan Last 24 Hours: My Active Orders 08/09/21 15:12 Saline Lock Insert [OM.PC] Stat
[2021-08-09 15:36] LABS: BLOOD UREA NITROGEN,BUN 11 mg/dL (7.0-18.0); CARBON DIOXIDE,CO2 29.2 mmol/L (21.0-32.0); CHLORIDE,CL 105 mmol/L (98-107); GLUCOSE RANDOM 83 mg/dL (74-106); LIPASE 103 U/L (73-393); POTASSIUM,K 3.5 mmol/L (3.5-5.1); SODIUM,NA 142 mmol/L (136-148)
[2021-08-09 16:04] LABS: CORONAVIRUS COVID-19 NAA NEGATIVE (NEGATIVE); INFLUENZA A NAA NEGATIVE (NEGATIVE); INFLUENZA B NAA NEGATIVE (NEGATIVE)
--- NOTE | 2021-08-09 17:19 | PCM.EKG ---
#1 Interpretation EKG Date: 08/09/21 Time: 14:45 EKG Interpretation Comments: EKG: As interpreted by ER physician: Kely: Nonspecific ST-T wave abnormalities Normal axis No evidence of ST elevation HI Normal sinus rhythm heart rate of 69
[2021-08-09 17:51] VITALS: BP 132/76; PULSE 75
[2021-08-09] MEDS ORDERED: Iopamidol 755 MG/ML 500 ML Multipack Bottle IVPUSH ONE (18:55)
--- NOTE | 2021-08-09 21:20 | CT ---
INDICATION: Right-sided chest pain. COMPARISON: Chest radiograph 07/18/2021. TECHNIQUE: CTA chest PE protocol with coronal and sagittal reformations and 3D MIP images. 100 milliliters Isovue 370. FINDINGS: There are no pulmonary emboli identified. Normal course and caliber of the thoracic aorta. Normal heart size. No pericardial effusion. No mediastinal, axillary, or supraclavicular lymphadenopathy. Visualized portions of thyroid are unremarkable. No pulmonary nodules or pulmonary opacities. Pleural space clear. Central airways are patent. Limited arterial phase images of the upper abdomen demonstrate cholecystectomy clips, but are otherwise unremarkable. There are no acute or aggressive osseous abnormalities. IMPRESSION: No cause of right-sided chest pain identified. No pulmonary embolism. Jose Maria Mcelroy M.D. [email or web address] DANYEL/melissa DW/Dictated by: Jose Maria Mcelroy MD @ 08/09/2021 4:20:00 PM (Electronically Signed)
== END 2021-08-09 17:51 | disposition home or self-care (01) ==
LOC: MW.ED 14:42
DX: R07.89 Other chest pain (principal); E66.9 Obesity, unspecified; Z68.31 Body mass index [BMI] 31.0-31.9, adult; Z79.899 Other long term (current) drug therapy; Z20.822 Contact with and (suspected) exposure to COVID-19
CPT/HCPCS: 0240U; 71275; 80053; 83690; 84484; 85025; 85379; 86308; 93005; 99285; Q9967

== ENCOUNTER 2022-01-23 09:06 | Day surgery (SDC) | payer BC, OTHER ==
[~2022-01-23 09:06] MED LIST changes: -cefOXitin 2 GM in Premix Bag 1 BAG IV ONE
[2022-01-23] MEDS ORDERED: Propofol 200 MG/20 ML SDV ONE (09:50)
[2022-01-23] MEDS ORDERED: Lactated Ringers 1,000 ML IV SCH (10:45)
[2022-01-23 10:46] VITALS: BP 113/60; PULSE 56
== END 2022-01-23 10:58 | disposition home or self-care (01) ==
LOC: MW.SDS 09:06
PROVIDERS: ATTEND Surgery
DX: K62.5 Hemorrhage of anus and rectum (principal); G47.33 Obstructive sleep apnea (adult) (pediatric); E66.9 Obesity, unspecified; Z80.0 Family history of malignant neoplasm of digestive organs; Z79.899 Other long term (current) drug therapy; Z90.49 Acquired absence of other specified parts of digestive tract; Z98.890 Other specified postprocedural states; Z87.891 Personal history of nicotine dependence; Z68.32 Body mass index [BMI] 32.0-32.9, adult
CPT/HCPCS: 45378; J2704; J7120